=== PATIENT | female | born 1945 | race Caucasian/White ===

== ENCOUNTER 2017-02-02 05:44 | Day surgery (SDC) | payer MEDICARE, OTHER ==
--- NOTE | 2017-01-26 09:48 | RADIOLOGY REPORT (SQ) ---
EXAM DESCRIPTION: CHEST PA/LATERAL COMPLETED DATE/TIME: 01/26/2017 9:21 am REASON FOR STUDY: PRE OP COMPARISON: 10/14/2015, 09/13/2012, 03/17/2011 chest films EXAM PARAMETERS: NUMBER OF VIEWS: two views TECHNIQUE: Digital Frontal and Lateral radiographic views of the chest acquired. RADIATION DOSE: NA LIMITATIONS: none FINDINGS: LUNGS AND PLEURA: 2 cm nodule left upper lobe. Chest CT recommended for followup. No acute infiltrates. No significant pleural effusion. No pneumothorax. MEDIASTINUM AND HILAR STRUCTURES: No masses or contour abnormalities. HEART AND VASCULAR STRUCTURES: No cardiomegaly. Tortuous uncoiled thoracic aorta BONES: No acute findings. HARDWARE: None in the chest. OTHER: No other significant finding. IMPRESSION: 2 cm nodule left upper lobe. Chest CT recommended for followup. TECHNICAL DOCUMENTATION: JOB ID: [id number] [employer]- All Rights Reserved
[2017-01-26 10:00] LABS: ABSOLUTE BASOPHILS # (AUTO) 0.1 10^3/uL (0.0-0.2); ABSOLUTE EOSINOPHILS # (AUTO) 0.2 10^3/uL (0.0-0.6); ABSOLUTE LYMPHOCYTES (AUTO) 1.8 10^3/uL (0.5-4.7); ABSOLUTE MONOCYTES (AUTO) 0.6 10^3/uL (0.1-1.4); ABSOLUTE NEUT (AUTO) 5.6 10^3/uL (1.7-8.2); BASOPHILS % (AUTO) 1.2 % (0-2); EOSINOPHILS % (AUTO) 2.6 % (0-6); HEMATOCRIT 41.8 % (36.0-47.0); HEMOGLOBIN 14.4 g/dL (12.0-15.5); HGB HCT DIFFERENCE 1.4; LYMPHOCYTES % (AUTO) 21.8 % (13-45); MEAN CORPUSCULAR HEMOGLOBIN 28.8 pg (27.0-33.4); MEAN CORPUSCULAR HGB CONC 34.3 g/dL (32.0-36.0); MEAN CORPUSCULAR VOLUME 84 fl (80-97); MONOCYTES % (AUTO) 7.7 % (3-13); RED BLOOD COUNT 4.99 10^6/uL (3.72-5.28); RED CELL DISTRIBUTION WIDTH 14.4 % (11.5-14.0); SEGMENTED NEUTROPHILS % (AUTO) 66.7 % (42-78); WHITE BLOOD COUNT 8.5 10^3/uL (4.0-10.5)
[2017-01-26 10:03] LABS: APPEARANCE,URINE CLEAR; BILIRUBIN,URINE NEGATIVE (NEGATIVE); GLUCOSE, URINE NEGATIVE (NEGATIVE); KETONES,URINE NEGATIVE (NEGATIVE); LEUKOCYTE ESTERASE,URINE NEGATIVE (NEGATIVE); NITRITE,URINE NEGATIVE (NEGATIVE); PROTEIN,URINE NEGATIVE (NEGATIVE); UROBILINOGEN,URINE NEGATIVE mg/dL (<2.0)
[2017-01-26 10:27] LABS: ANION GAP 16 (5-19); BLOOD UREA NITROGEN 13 mg/dL (7-20); CALCIUM 10.1 mg/dL (8.4-10.2); CARBON DIOXIDE 31 mmol/L (22-30); CHLORIDE 94 mmol/L (98-107); CREATININE RESULT 0.74 mg/dL (0.52-1.25); GLUCOSE 116 mg/dL (75-110); POTASSIUM 3.6 mmol/L (3.6-5.0); SODIUM 140.6 mmol/L (137-145)
--- NOTE | 2017-01-26 21:03 | EKG REPORT ---
SEVERITY:- ABNORMAL ECG - SINUS RHYTHM INCOMPLETE RBBB AND LAFB CONSIDER ANTEROSEPTAL INFARCT : Confirmed by: Ana Dejesus MD 26-Jan-2017 21:02:42
[~2017-02-02 05:44] MED LIST: CEFAZOLIN 2 GM/D5W RTU 2 GM/50 ML RTUPB IV PRN; LACTATED RINGERS 1000 ML IV PRN
[2017-02-02] MEDS ORDERED: PROPOFOL INJ 200 MG/20 ML VIAL IV ONE (06:37)
[2017-02-02] MEDS ORDERED: FENTANYL CITRATE INJ/PF 100 MCG/2 ML AMPUL ONE (06:37)
[2017-02-02] MEDS ORDERED: MIDAZOLAM 2 MG/2 ML INJ ONE (06:37)
[2017-02-02] MEDS ORDERED: KETAMINE HCL INJ 500 MG/10 ML VIAL ONE (06:37)
[2017-02-02] MEDS ORDERED: LIDOCAINE 2% INJ-PF (20 MG/ML) 10 ML AMPUL ONE (06:37)
[2017-02-02] MEDS ORDERED: ACETAMINOPHEN 100 ML IV ONE (06:38)
[2017-02-02] MEDS ORDERED: BUPIVACAINE HCL 0.5 % INJ/PF 30 ML SDV ONE (06:45)
[2017-02-02] MEDS ORDERED: LIDOCAINE 1% INJ-PF (10 MG/ML) 30 ML SDV ONE (07:13)
[2017-02-02] MEDS ORDERED: MORPHINE SULFATE 10 MG/ML INJ IV PRN (07:41)
[2017-02-02] MEDS ORDERED: FENTANYL CITRATE INJ/PF 100 MCG/2 ML AMPUL IV PRN ×3 (07:41)
[2017-02-02] MEDS ORDERED: MEPERIDINE HCL/PF INJ 25 MG/1 ML DISP.SYRIN IV PRN (07:41)
[2017-02-02] MEDS ORDERED: ONDANSETRON HCL INJ/PF 4 MG/2 ML SDV IV PRN ×2 (07:41→08:16)
[2017-02-02] MEDS ORDERED: DIPHENHYDRAMINE HCL 50 MG/ML VIAL IV PRN (07:41)
[2017-02-02] MEDS ORDERED: OXYCODONE-ACETAMINOPHEN 5-325 MG TABLET PO PRN ×2 (07:41)
[2017-02-02] MEDS ORDERED: PROMETHAZINE HCL INJ 25 MG/1 ML VIAL IV PRN ×2 (07:41)
--- NOTE | 2017-02-02 07:49 | EKG REPORT ---
SEVERITY:- ABNORMAL ECG - SINUS RHYTHM INCOMPLETE RBBB AND LAFB CONSIDER ANTEROSEPTAL INFARCT : Confirmed by: Juan A Manzo MD 02-Feb-2017 07:48:52
[2017-02-02] MEDS ORDERED: HYDROCODONE/ACETAMINOPHEN 5-325 MG TABLET PO PRN (08:16)
--- NOTE | 2017-02-02 08:16 | Operative Report ---
Operative Report DATE OF SURGERY: 02/02/17 PREOPERATIVE DIAGNOSIS: Right Carpal Tunnel. Right Trigger Thumb POSTOPERATIVE DIAGNOSIS: Right Carpal Tunnel. Right Trigger Thumb OPERATION: Right Endoscopic Carpal Tunnel Release. Right Trigger Thumb Release SURGEON: MY BALLARD ANESTHESIA: LMAC COMPLICATIONS: None ESTIMATED BLOOD LOSS: Minimal PROCEDURE: Indication for above procedure: 72-year-old female with long-standing history of right carpal tunnel syndrome. Patient had neurodiagnostic testing confirming severe carpal tunnel syndrome. She subsequently also had concomitant trigger thumb. We discussed treatment options including operative versus nonoperative intervention. Given the severity of her carpal tunnel the joint decision was made to proceed with carpal tunnel release given the fact that is the ipsilateral side I would perform trigger thumb release. Risks and benefits were explained patient verbalized understanding consented for the procedure. Procedure In Detail: Patient was seen and evaluated in the preoperative holding area. The RIGHT upper extremity was initialized and marked. Patient received Ancef IV for bacterial prophylaxis. Patient was taken back to the operative room where transferred operative table. Patient was then placed under MAC anesthesia. Once adequately anesthetized, a nonsterile tourniquet was placed on the upper extremity. A surgical team debriefing was performed ensuring all instrumentation was available, the surgical procedure was discussed with possible concerns reviewed. Skin was prepped with alcohol a 50:50 10 mL mixture of 1% lidocaine and 0.5% Marcaine plain was injected locally and w/in carpal canal and along the A1 franny of the thumb. The upper extremity was prepped with chlorhexidine and alcohol and draped in a sterile fashion. A timeout was done identifying correct patient, procedure and extremity everyone in attendance agree with this and verbalized no concerns.The extremity was then exsanguinated the tourniquet was inflated to 250 mmHg. A transverse skin incision was made just proximal to the wrist flexion crease ulnar to the palmaris longus. Blunt dissection was performed down to the palmaris longus tendon which was retracted radially. Deep to the palmaris longus tendon was the volar carpal ligament this was incised identifying the median nerve deep. With the use of a [place] elevator any soft tissue/synovium was freed from the undersurface of the transverse carpal ligament. The hook of hamate was identified ulnarly. The ConMed cannulas were then introduced beginning with #1 progressing to a #3 gently dilating the carpal canal. I then introduced the scope within the cannula and identified transverse carpal ligament ensuring the median nerve was not visualized within the cannula. I triangulated distally with a 25-gauge needle identifying the distal aspect of the transverse carpal ligament, to ensure protection of the superficial palmar arch. The arthroscopic knife was used to incise the transverse carpal ligament under direct visualization with the arthroscopic camera. Any excess transverse fibers that remained after the first past were carefully released with a repeat pass. The median nerve was then directly visualized radially without disruption. Patient was noted to have significant hourglassing of the median nerve at the level of the transverse carpal ligament with significant hyperemia. Once this was completed I placed the #3 dilator and assured I got complete release of the transverse carpal ligament without residual compression. The median nerve was directly visualized and free of any overlying compression. I then turned my attention to release of the volar antebrachial fascia proximally. Once again a [place] was used to open the wound and I proceeded with cannula #1 to #3. The arthroscope was introduced into the cannula and under direct visualization the volar antebrachial fascia was released. Once this was complete I copiusly irrigated the wound with normal saline. The skin incision was closed with 4-0 Monocryl subcutaneous and a running subcuticular 4-0 Monocryl. This was reinforced with Dermabond and Steri -Strips. Transverse skin incision was made centered over the A1 franny of the thumb. The radial and ulnar neurovascular bundles were identified and retracted from the wound. Of note patient had significant pacinian corpuscles of the radial nerve at the level of the A1 franny. The A1 franny was identified and incised. The A1 franny was released to the level of the oblique franny but not through the oblique franny. The palmar aponeurotic franny was released proximal to the A1 franny. The tendon was retracted from the wound there is no residual catching or locking appreciated. The wound was then copiously irrigated with normal saline. Skin was closed with interrupted 4-0 nylon suture. Wound was dressed with Xeroform and a soft dressing. Sponge counts, instrument counts, needle counts counts were correct. Patient was then awoken from anesthesia. Transferred from the operating room table to the operating room stretcher. There was no intraoperative complications patient tolerated procedure well stable to PACU. Postoperative plan: Patient will follow-up as scheduled for wound check. They will call with any questions or concerns.
[2017-02-02 10:13] VITALS: BP 120/60
== END 2017-02-02 10:18 | disposition home or self-care (01) ==
LOC: OROUT 05:44
PROVIDERS: ATTEND Orthopaedic Surgery
PROC: 01N54ZZ Release Median Nerve, Percutaneous Endoscopic Approach (ICD-10-PCS; 2017-02-02)
PROC: 0LN70ZZ Release Right Hand Tendon, Open Approach (ICD-10-PCS; principal; 2017-02-02 07:30)
DX: G56.01 Carpal tunnel syndrome, right upper limb (principal); M65.311 Trigger thumb, right thumb; I10 Essential (primary) hypertension; J45.909 Unspecified asthma, uncomplicated; M19.90 Unspecified osteoarthritis, unspecified site; E89.0 Postprocedural hypothyroidism; Z96.653 Presence of artificial knee joint, bilateral; Z88.8 Allergy status to other drugs, medicaments and biological substances; Z88.1 Allergy status to other antibiotic agents; Z79.51 Long term (current) use of inhaled steroids; Z79.899 Other long term (current) drug therapy; Z85.42 Personal history of malignant neoplasm of other parts of uterus
CPT/HCPCS: 93005 ×2; 36415 ×2; 84132; 85025; 80048; 81001; 71020; 93010 ×2; 26055; 29848; J2250; J3010; J3490 ×3; J2704; J0690; J0131; 1810

== ENCOUNTER → 2017-02-12 | Outpatient (CLI) | payer MEDICARE, OTHER ==
--- NOTE | 2017-02-12 16:02 | RADIOLOGY REPORT (SQ) ---
EXAM DESCRIPTION: CT CHEST WITHOUT COMPLETED DATE/TIME: 02/12/2017 3:31 pm REASON FOR STUDY: SOLITARY PULMONARY NODULE R91.1 SOLITARY PULMONARY NODULE COMPARISON: None. TECHNIQUE: CT scan performed of the chest without intravenous contrast. Images reviewed with lung, soft tissue and bone windows. Reconstructed coronal and sagittal MPR images reviewed. All images st ored on PACS. All CT scanners at this facility use dose modulation, iterative reconstruction, and/or weight based d osing when appropriate to reduce radiation dose to as low as reasonably achievable (ALARA). [facility]: Dose Right [facility]: CareDose [facility]: Dose Right [facility]: Teradose 4D [facility]: Smart SmartGrains RADIATION DOSE: CT Rad equipment meets quality standard of care and radiation dose reduction techniq ues were employed. CTDIvol: 19.3 mGy. DLP: 703 mGy-cm. mGy. LIMITATIONS: No technical limitations. FINDINGS: LUNGS AND PLEURA: 1.7 cm solitary solid nodule left upper lobe. 3 mm ground-glass nodule left apex image 20. No effusions. HILAR AND MEDIASTINAL STRUCTURES: No identified masses or abnormal nodes. No obvious aneurysm. HEART AND VASCULAR STRUCTURES: No aneurysm. No pericardial effusion. UPPER ABDOMEN: No significant findings. Limited exam. THYROID AND OTHER SOFT TISSUES: No masses. No adenopathy. BONES: No significant finding. HARDWARE: None in the chest. OTHER: No other significant findings. IMPRESSION: Solitary solid nodule left upper lobe. Much smaller ground-glass nodule left upper lobe . Consider PET-CT. TECHNICAL DOCUMENTATION: JOB ID: [id number] Quality ID # [id number]: Final reports with documentation of one or more dose reduction techniques (e.g., Au tomated exposure control, adjustment of the mA and/or kV according to patient size, use of iterative reconstruction technique) 2010 [email or web address]- All Rights Reserved
== END ==
LOC: RAD 15:12
PROVIDERS: ATTEND Family Medicine
DX: R91.1 Solitary pulmonary nodule (principal)
CPT/HCPCS: 71250

== ENCOUNTER → 2017-05-31 | Outpatient (CLI) | payer MEDICARE, OTHER ==
--- NOTE | 2017-05-31 14:22 | RADIOLOGY REPORT (SQ) ---
EXAM DESCRIPTION: CHEST PA/LAT COMPLETED DATE/TIME: 05/31/2017 2:02 pm REASON FOR STUDY: PULMONARY NODULE (R91.1) COMPARISON: 10/14/2015 EXAM PARAMETERS: NUMBER OF VIEWS: two views TECHNIQUE: Digital Frontal and Lateral radiographic views of the chest acquired. RADIATION DOSE: NA LIMITATIONS: none FINDINGS: LUNGS AND PLEURA: Left upper lobe nodule measures about 2 cm, previously about 1.5 cm. No new nodules. MEDIASTINUM AND HILAR STRUCTURES: No masses. HEART AND VASCULAR STRUCTURES: Stable heart size. BONES: No acute findings. HARDWARE: None in the chest. OTHER: No other significant finding. IMPRESSION: Slight increase in size of left upper lobe nodule. TECHNICAL DOCUMENTATION: JOB ID: [id number] [employer]- All Rights Reserved Reading location - IP/workstation name: [email or web address]
== END ==
LOC: RAD 13:20
PROVIDERS: ATTEND Family Medicine
DX: R91.1 Solitary pulmonary nodule (principal)
CPT/HCPCS: 71046

== ENCOUNTER 2017-06-15 08:15 | Day surgery (SDC) | payer MEDICARE, OTHER ==
--- NOTE | 2017-06-08 10:40 | EKG REPORT ---
SEVERITY:- ABNORMAL ECG - SINUS RHYTHM INCOMPLETE RBBB AND LAFB PROBABLE LVH WITH SECONDARY REPOL ABNRM : Confirmed by: Kavon Chaudhry 08-Jun-2017 10:39:01
[2017-06-08 10:56] LABS: ABSOLUTE BASOPHILS # (AUTO) 0.1 10^3/uL (0.0-0.2); ABSOLUTE EOSINOPHILS # (AUTO) 0.2 10^3/uL (0.0-0.6); ABSOLUTE LYMPHOCYTES (AUTO) 1.7 10^3/uL (0.5-4.7); ABSOLUTE MONOCYTES (AUTO) 0.7 10^3/uL (0.1-1.4); ABSOLUTE NEUT (AUTO) 5.4 10^3/uL (1.7-8.2); BASOPHILS % (AUTO) 1.3 % (0-2); EOSINOPHILS % (AUTO) 2.2 % (0-6); HEMATOCRIT 43.9 % (36.0-47.0); HEMOGLOBIN 14.9 g/dL (12.0-15.5); LYMPHOCYTES % (AUTO) 21.5 % (13-45); MEAN CORPUSCULAR HEMOGLOBIN 28.8 pg (27.0-33.4); MEAN CORPUSCULAR HGB CONC 33.9 g/dL (32.0-36.0); MEAN CORPUSCULAR VOLUME 85 fl (80-97); MONOCYTES % (AUTO) 8.5 % (3-13); PLATELET COUNT 325 10^3/uL (150-450); RED BLOOD COUNT 5.17 10^6/uL (3.72-5.28); RED CELL DISTRIBUTION WIDTH 13.7 % (11.5-14.0); SEGMENTED NEUTROPHILS % (AUTO) 66.5 % (42-78); TOTAL CELLS COUNTED % (AUTO) 100 %; WHITE BLOOD COUNT 8.1 10^3/uL (4.0-10.5)
[2017-06-08 11:01] LABS: APPEARANCE,URINE CLEAR; BILIRUBIN,URINE NEGATIVE (NEGATIVE); COLOR,URINE YELLOW; GLUCOSE, URINE NEGATIVE (NEGATIVE); KETONES,URINE NEGATIVE (NEGATIVE); LEUKOCYTE ESTERASE,URINE NEGATIVE (NEGATIVE); NITRITE,URINE NEGATIVE (NEGATIVE); PROTEIN,URINE NEGATIVE (NEGATIVE); UROBILINOGEN,URINE NEGATIVE mg/dL (<2.0)
[2017-06-08 11:35] LABS: ANION GAP 12 (5-19); BLOOD UREA NITROGEN 15 mg/dL (7-20); CARBON DIOXIDE 33 mmol/L (22-30); CHLORIDE 95 mmol/L (98-107); GLUCOSE 140 mg/dL (75-110); POTASSIUM 3.2 mmol/L (3.6-5.0); SODIUM 139.5 mmol/L (137-145)
--- NOTE | 2017-06-08 13:17 | RADIOLOGY REPORT (SQ) ---
EXAM DESCRIPTION: CHEST PA/LATERAL COMPLETED DATE/TIME: 06/08/2017 10:34 am REASON FOR STUDY: PRE OP COMPARISON: 05/31/2017 EXAM PARAMETERS: NUMBER OF VIEWS: two views TECHNIQUE: Digital Frontal and Lateral radiographic views of the chest acquired. RADIATION DOSE: NA LIMITATIONS: none FINDINGS: LUNGS AND PLEURA: Left upper lobe pulmonary nodule. No infiltrate or effusion. Mild insurance analyst shamika interstitial changes. MEDIASTINUM AND HILAR STRUCTURES: No masses or contour abnormalities. HEART AND VASCULAR STRUCTURES: Heart normal size. No evidence for failure. BONES: No acute findings. HARDWARE: None in the chest. OTHER: No other significant finding. IMPRESSION: Chronic lung changes. Left upper lobe pulmonary nodule. TECHNICAL DOCUMENTATION: JOB ID: [id number] [employer]- All Rights Reserved Reading location - IP/workstation name: [email or web address]
[~2017-06-15 08:15] MED LIST changes: -CEFAZOLIN 2 GM/D5W RTU 2 GM/50 ML RTUPB IV PRN; +CEFAZOLIN SODIUM 2 GM in NORMAL SALINE 100 ML IV PRN; +LIDOCAINE 0.5% INJ-PF (5 MG/ML) 50 ML SDV SUBCUT PRN
[2017-06-15] MEDS ORDERED: FENTANYL CITRATE INJ/PF 100 MCG/2 ML AMPUL ONE (09:48)
[2017-06-15] MEDS ORDERED: MIDAZOLAM 2 MG/2 ML INJ ONE (09:48)
[2017-06-15] MEDS ORDERED: ONDANSETRON HCL INJ/PF 4 MG/2 ML SDV ONE (09:48)
[2017-06-15] MEDS ORDERED: PROPOFOL INJ 200 MG/20 ML VIAL IV ONE (09:48)
[2017-06-15] MEDS ORDERED: BUPIVACAINE HCL 0.5 % INJ/PF 30 ML SDV ONE (09:49)
[2017-06-15] MEDS ORDERED: LIDOCAINE 1% INJ-PF (10 MG/ML) 30 ML SDV ONE (09:49)
[2017-06-15] MEDS ORDERED: FENTANYL CITRATE INJ/PF 100 MCG/2 ML AMPUL IV PRN ×3 (10:14)
[2017-06-15] MEDS ORDERED: DIPHENHYDRAMINE HCL 50 MG/ML VIAL IV PRN (10:14)
[2017-06-15] MEDS ORDERED: MEPERIDINE HCL/PF INJ 25 MG/1 ML DISP.SYRIN IV PRN (10:14)
--- NOTE | 2017-06-15 11:00 | Operative Report ---
Operative Report DATE OF SURGERY: 06/15/17 PREOPERATIVE DIAGNOSIS: #1 Carpal Tunl. left wrist. #2 mass left wrist POSTOPERATIVE DIAGNOSIS: Same OPERATION: #1 Left Open Carpal Tunl. release. #2 Flexor tenosynovectomy left carpal tunnel. #4 excision ganglion left wrist. #3 excision lipoma left wrist SURGEON: MY BALLARD 1ST SCIENTIFIC GLASS BLOWER: WILBUR GOVEA ANESTHESIA: GA TISSUE REMOVED OR ALTERED: Mass left wrist. Ganglion left wrist COMPLICATIONS: None ESTIMATED BLOOD LOSS: Minimal PROCEDURE: Indication for above procedure: Pleasant 72-year-old female who presents my office with numbness and tingling in her left wrist. Neurodiagnostic testing was done confirming carpal tunnel. Patient also had concomitant mass along her left wrist. At that point we discussed treatment options including operative versus nonoperative intervention. Patient failed conservative measures thus decision was made to proceed with operative treatment. Procedure In Detail: Procedure In Detail: Patient was seen and evaluated in the preoperative holding area. The upper extremity was initialized and marked. Patient received 2g of Ancef IV for bacterial prophylaxis. Patient was taken back to the operative room where transferred to the operative table and placed under general anesthesia. Once they were adequately anesthetized a nonsterile tourniquet was placed on the upper extremity. A surgical team debriefing was performed ensuring all instrumentation was available, the surgical procedure was discussed with possible concerns reviewed. The upper extremity was prepped with chlorhexidine and alcohol and draped in a sterile fashion. A timeout was done identifying correct patient, procedure and extremity everyone in attendance agree with this and verbalized no concerns. The extremity was exsanguinated the tourniquet was inflated to 250 mmHg. A transverse skin incision was made just proximal to the wrist flexion crease ulnar to the palmaris longus. Blunt dissection was performed down to the palmaris longus tendon which was retracted radially. Deep to the palmaris longus tendon was the volar carpal ligament this was incised identifying the median nerve deep. With the use of a [place] elevator any soft tissue/synovium was freed from the undersurface of the transverse carpal ligament. The hook of hamate was identified ulnarly. The ConMed cannulas were then introduced beginning with #1 progressing to a #3 gently dilating the carpal canal. I then introduced the scope within the cannula and identified transverse carpal ligament ensuring the median nerve was not visualized within the cannula. There was evidence of significant tenosynovium with anomalous muscle at the transverse incision site. Muscle was likely consistent with palmaris profundus and was debulked. Given the anomalous muscle I proceeded to open carpal tunnel release. Longitudinal skin incision was made along the radial border of the ring finger from Hollis's cardinal line to just distal to the wrist flexion crease. The palmar fascia was incised. The transverse carpal labrum was then identified and released proximally to distally at the adipose protecting the superficial palmar arch. I then completed release of the volar antebrachial fascia. There was evidence of tenosynovium and thus a flexor tenosynovectomy was performed to further decompress the carpal canal. The wound was irrigated with saline. Any peripheral veins were coagulated bipolar cautery skin incision was closed with horizontal mattress 3-0 nylon. Longitudinal skin incision was made along the superficial mass on the dorsal ulnar border of the wrist. Blunt dissection was performed branches of the dorsal sensory ulnar branch was protected. The mass was then isolated and consistent with a ganglion cyst from the tendon sheath and thus excised and sent to pathology. Ganglion was 1.5 cm x 1 cm in size. The adjacent mass just proximal was also identified in the lipoma 5 mm x 5 mm was removed and sent to pathology. The wound was then copiously irrigated with normal saline. Skin was closed with horizontal mattress 4-0 nylon. 20 cc of 0.5% Marcaine with epinephrine was injected for postoperative pain control. Wound was dressed with a soft dressing, 4 x 4's and a De bandage was placed loosely. Sponge counts, instrument counts and needle counts were correct. The was no intraoperative complications patient tolerated the procedure well and was stable to PACU. Postoperative plan: Patient will follow-up in the office in 2 weeks for recheck. Will discuss pathology results.
[2017-06-15] MEDS ORDERED: MORPHINE SULFATE 10 MG/ML INJ IV PRN (11:01)
[2017-06-15] MEDS ORDERED: RINGERS SOLUTION,LACTATED 1,000 ML IV PRN (11:01)
[2017-06-15] MEDS ORDERED: ONDANSETRON HCL INJ/PF 4 MG/2 ML SDV IV PRN (11:01)
[2017-06-15] MEDS ORDERED: OXYCODONE-ACETAMINOPHEN 5-325 MG TABLET PO PRN (11:01)
--- NOTE | 2017-06-15 11:01 | Discharge Summary ---
Discharge Summary (SDC) - Discharge Final Diagnosis: Left carpal tunnel syndrome and left dorsal ganglion cyst and soft tissue mass Date of Surgery: 06/15/17 Discharge Date: 06/15/17 Condition: Good Treatment or Instructions: Schedule Follow Up w/ Dr. Tomer Flood @ [facility] for Surgery to be seen in 10-14 days or as scheduled [place]: [place]: [place]: May remove dressing on postop day #3, keep incision covered and dry. Ice and elevate May begin finger range of motion attempting to make full fist. Stool softener of choice when on pain medication. Prescriptions: Hydrocodone/Acetaminophen [Hydrocodon-Acetaminophen 5-325] 1 each PO Q6 #20 tablet Referrals: ARMEN DOWNEY MD [Primary Care Provider] - Respiratory Treatments at Home: Deep Breathing/Coughing Discharge Activity: No Lifting Over 10 Pounds, No Lifting/Push/Pulling Home Care Assistance: None Needed Report the Following to Your Physician Immediately: Shortness of Breath, Fever over 101 Degrees, Unusual Bleeding, Redness, Drainage-Green, Drainage-Foul Smelling
[2017-06-15] MEDS ORDERED: IPRATROPIUM/ALBUTEROL 0.5-2.5 MG/3 ML AMPUL NEB ONE (11:12)
[2017-06-15] MEDS: FENTANYL CITRATE INJ/PF 100 MCG/2 ML AMPUL ONE ×2 (11:27→11:33)
[2017-06-15 13:38] VITALS: BP 116/53
== END 2017-06-15 13:35 | disposition home or self-care (01) ==
LOC: OROUT 08:15
PROVIDERS: ATTEND Orthopaedic Surgery
PROC: 0LB60ZZ Excision of Left Lower Arm and Wrist Tendon, Open Approach (ICD-10-PCS; 2017-06-15)
PROC: 0HBEXZZ Excision of Left Lower Arm Skin, External Approach (ICD-10-PCS; 2017-06-15)
PROC: 01N50ZZ Release Median Nerve, Open Approach (ICD-10-PCS; principal; 2017-06-15 10:15)
DX: G56.02 Carpal tunnel syndrome, left upper limb (principal); D17.22 Benign lipomatous neoplasm of skin and subcutaneous tissue of left arm; M67.432 Ganglion, left wrist; E08.9 Diabetes mellitus due to underlying condition without complications; M19.90 Unspecified osteoarthritis, unspecified site; I10 Essential (primary) hypertension; Z96.653 Presence of artificial knee joint, bilateral; J45.909 Unspecified asthma, uncomplicated; Z79.51 Long term (current) use of inhaled steroids; Z88.1 Allergy status to other antibiotic agents; Z85.42 Personal history of malignant neoplasm of other parts of uterus
CPT/HCPCS: 64721; 25111; 93005; 36415 ×2; 84132; 85025; 80048; 81001; 88304 ×2; 71046; 93010; J2250; J3490; J0690; J3010; A9270 ×2; J2405; J2704; 1810; J7620

== ENCOUNTER 2019-08-09 13:45 | Emergency (ER) | payer MEDICARE, OTHER ==
[2019-08-09] MEDS ORDERED: MORPHINE SULFATE 10 MG/ML INJ IV ONE (14:07)
[2019-08-09] MEDS ORDERED: DIPH/PERTUSS(ACELL)/TETANUS VAC/PF 0.5 ML SYR (>=10YO) IM ONE (14:07)
--- NOTE | 2019-08-09 14:38 | RADIOLOGY REPORT (SQ) ---
EXAM DESCRIPTION: HAND LEFT 3 VIEWS IMAGES COMPLETED DATE/TIME: 08/09/2019 2:24 pm REASON FOR STUDY: fall/pain COMPARISON: None. EXAM PARAMETERS: NUMBER OF VIEWS: Three views. TECHNIQUE: AP, lateral and oblique radiographic images acquired of the left hand. LIMITATIONS: None. FINDINGS: MINERALIZATION: Decreased. BONES: Transversely oriented displaced impacted fracture of the distal radius. Likely intra-articula r extension to the radiocarpal and distal radioulnar joints. No significant angulation. Ulnar posit tico variance. Possible ulnar styloid fracture versus degenerative change. JOINTS: Degenerative changes with osteophytosis, subchondral sclerosis and joint space loss at the 1s t and 2nd carpometacarpal joints. SOFT TISSUES: Soft tissue swelling about the wrist. OTHER: No other significant finding. IMPRESSION: Transverse impacted fracture of the distal radius with likely intra-articular extension into the radiocarpal and distal radioulnar joints. TECHNICAL DOCUMENTATION: JOB ID: [id number] 2010 [employer]- All Rights Reserved Reading location - IP/workstation name: [email or web address]
--- NOTE | 2019-08-09 14:40 | RADIOLOGY REPORT (SQ) ---
EXAM DESCRIPTION: WRIST LEFT 3 VIEWS IMAGES COMPLETED DATE/TIME: 08/09/2019 2:24 pm REASON FOR STUDY: fall/pain COMPARISON: None. NUMBER OF VIEWS: Three views. TECHNIQUE: AP, lateral, and oblique radiographic images acquired of the left wrist. LIMITATIONS: None. FINDINGS: MINERALIZATION: Decreased. BONES: Displaced impacted fracture of the distal radius with likely extension into the radiocarpal an d distal radioulnar joints. No significant angulation. No additional definitive fractures identifie d. Degenerative changes about the 1st and 2nd carpometacarpal joints SOFT TISSUES: Soft tissue swelling about the wrist. OTHER: No other significant finding. IMPRESSION: Transverse impacted fracture at the distal radius with likely extension into the distal radioulnar and radiocarpal joints. TECHNICAL DOCUMENTATION: JOB ID: [id number] 2010 [employer]- All Rights Reserved Reading location - IP/workstation name: [email or web address]
--- NOTE | 2019-08-09 15:02 | ER Document Report ---
ED General - General Chief Complaint: Wrist Injury Stated Complaint: LEFT HAND PAIN Time Seen by Provider: 08/09/19 14:04 Primary Care Provider: ARMEN DOWNEY MD [Primary Care Provider] - Follow up as needed Mode of Arrival: Wheelchair Information source: Patient TRAVEL OUTSIDE OF THE [place] IN LAST 30 DAYS: No - HPI Notes: Patient complains of left wrist pain. Patient states that she fell over a rug this morning and landed on her left wrist. Since that time she has had constant severe left wrist pain. Worse with movement is better with rest. It does radiate up the left arm. She denies any other injuries in the fall. It has been an aching sensation. - Related Data Allergies/Adverse Reactions: azithromycin [From Zithromax Z-Gordon] Allergy (Severe, Verified 08/09/19 14:21) rash,GI upset clarithromycin [From Biaxin] Allergy (Severe, Verified 08/09/19 14:21) rash,GI upset erythromycin base [Erythromycin Base] Allergy (Severe, Verified 08/09/19 14:21) rash,GI upset ciprofloxacin [From Cipro] Adverse Reaction (Verified 08/09/19 14:21) n/v/d clindamycin Adverse Reaction (Verified 08/09/19 14:21) rash, GI upset turkey Adverse Reaction (Severe, Uncoded 08/09/19 14:21) GI upset Past Medical History - General Information source: Patient - Social History Smoking Status: Never Smoker Frequency of alcohol use: None Drug Abuse: None Family History: Reviewed & Not Pertinent Patient has homicidal ideation: No - Past Medical History Cardiac Medical History: Reports: Hx Hypercholesterolemia, Hx Hypertension - 8 yrs- takes meds Denies: Hx Atrial Fibrillation, Hx Congestive Heart Failure, Hx Coronary Artery Disease, Hx Heart Attack, Hx Peripheral Vascular Disease, Hx Pulmonary Embolism, Hx Heart Murmur Pulmonary Medical History: Reports: Hx Asthma - daily meds, no hospitalizations, Hx Bronchitis - x 1 episode/year, Hx Pneumonia - no hospitalization Denies: Hx COPD, Hx Respiratory Failure, Hx Sleep Apnea, Hx Tuberculosis Neurological Medical History: Denies: Hx Cerebrovascular Accident, Hx Seizures Endocrine Medical History: Reports: Hx Hypothyroidism - parathyroid/thyroid surgery 2010. Denies: Hx Graves' Disease, Hx Hyperthyroidism Renal/ Medical History: Denies: Hx End Stage Renal Disease, Hx Kidney Stones, Hx Ovarian Cysts, Hx Peritoneal Dialysis, Hx Pelvic Inflammatory Disease Malignancy Medical History: Denies: Hx Breast Cancer, Hx Cervical Cancer, Hx Lung Cancer, Hx Ovarian Cancer - Endometrial Cancer-hysterectomy 2013 GI Medical History: Denies: Hx Crohn's Disease, Hx Gastroesophageal Reflux Disease, Hx Hepatitis, Hx Hiatal Hernia, Hx Irritable Bowel, Hx Liver Failure, Hx Pancreatitis, Hx Ulcer Musculoskeletal Medical History: Reports Hx Arthritis - Hands , Denies Hx Fibromyalgia, Denies Hx Muscular Dystrophy, Denies Hx Systemic Lupus Erythematosus Psychiatric Medical History: Reports: Hx Depression Denies: Hx Bipolar Disorder, Hx Post Traumatic Stress Disorder, Hx Schizophrenia Traumatic Medical History: Reports: Hx Fractures - RUE wth dislocation of shoulder 2006,immobilized with sling, denies surgery Infectious Medical History: Denies: Hx Hepatitis Past Surgical History: Reports: Hx Hysterectomy. Denies: Hx Appendectomy, Hx Bowel Surgery, Hx Section, Hx Cholecystectomy, Hx Colostomy, Hx Coronary Artery Bypass Graft, Hx Gastric Bypass Surgery, Hx Herniorrhaphy, Hx Mastectomy, Hx Open Heart Surgery, Hx Pacemaker, Hx Tonsillectomy, Hx Tubal Ligation - Immunizations Hx Diphtheria, Pertussis, Tetanus Vaccination: Yes - "A long time ago" Hx Pneumococcal Vaccination: 12/07/11 Review of Systems - Review of Systems Constitutional: denies: Chills, Fever Cardiovascular: denies: Chest pain, Palpitations Respiratory: denies: Cough, Short of breath -: Yes All other systems reviewed and negative Physical Exam - Vital signs Vitals: Temp Pulse Resp BP Pulse Ox 99.4 F 96 18 134/62 H 94 08/09/19 13:52 08/09/19 13:52 08/09/19 13:52 08/09/19 13:52 08/09/19 13:52 Interpretation: Normal - General General appearance: Appears well, Alert - HEENT Head: Normocephalic, Atraumatic Eyes: Normal Pupils: PERRL - Respiratory Respiratory status: No respiratory distress Chest status: Nontender Breath sounds: Normal Chest palpation: Normal - Cardiovascular Rhythm: Regular Heart sounds: Normal auscultation Murmur: No - Abdominal Inspection: Normal Distension: No distension Bowel sounds: Normal Tenderness: Nontender Organomegaly: No organomegaly - Back Back: Normal, Nontender - Extremities General upper extremity: Tender - Left wrist is tender and swollen. There is no sign of compartment syndrome at this point. She can wiggle all fingers on the left hand. She has normal capillary refill in all fingers. She has a 2+ radial pulse on the left., Normal temperature General lower extremity: Normal inspection, Nontender, Normal color, Normal ROM, Normal temperature, Normal weight bearing. No: Freya's sign - Neurological Neuro grossly intact: Yes Cognition: Normal Orientation: AAOx4 Donny Coma Scale Eye Opening: Spontaneous Donny Coma Scale Verbal: Oriented [place] Coma Scale Motor: Obeys Commands Donny Coma Scale Total: 15 Speech: Normal Motor strength normal: LUE, RUE, LLE, RLE Sensory: Normal - Psychological Associated symptoms: Normal affect, Normal mood - Skin Skin Temperature: Warm Skin Moisture: Dry Skin Color: Normal Course - Re-evaluation Re-evalutation: 08/09/19 14:59 Patient has a overriding impacted distal radius fracture. I discussed the case with Dr. San who feels that reduction would not be constructive. He asked the patient be placed in a volar splint and referred to his office. - Vital Signs Vital signs: Temp Pulse Resp BP Pulse Ox 99.0 F 89 20 135/63 H 96 08/09/19 14:10 08/09/19 14:10 08/09/19 14:10 08/09/19 14:10 08/09/19 14:10 - Diagnostic Test Radiology reviewed: Image reviewed, Reports reviewed Procedures - Immobilization Left Wrist Time completed: 14:59 Pre-Proc Neuro Vasc Exam: Normal Immobilizer type: Volar splint Performed by: RN Post-Proc Neuro Vasc Exam: Normal Alignment checked and good: No - still overriding Discharge - Discharge Clinical Impression: Distal radius fracture, left Qualifiers: Encounter type: initial encounter Fracture type: closed Fracture morphology: other intra-articular Qualified Code(s): S52.572A - Other intraarticular fracture of lower end of left radius, initial encounter for closed fracture Condition: Stable Disposition: HOME, SELF-CARE Instructions: Fractured Radius (H) Additional Instructions: Please call Dr. San's office today and he will try to see you before the end of the week. Prescriptions: Hydrocodone/Acetaminophen [[place] 5-325 mg Tablet] 1 tab PO Q6 PRN 3 Days #12 tablet PRN Reason: Referrals: MIKO SAN MD [ACTIVE PROVISIONAL STAFF] - Follow up tomorrow
[2019-08-09 16:07] VITALS: BP 135/78
== END 2019-08-09 16:20 | disposition home or self-care (01) ==
LOC: ER 13:45
DX: S52.572A Other intraarticular fracture of lower end of left radius, initial encounter for closed fracture (principal); W01.0XXA Fall on same level from slipping, tripping and stumbling without subsequent striking against object, initial encounter; Y93.89 Activity, other specified; Z23 Encounter for immunization; Z88.1 Allergy status to other antibiotic agents; I10 Essential (primary) hypertension; J45.909 Unspecified asthma, uncomplicated
CPT/HCPCS: 73130; 99283; 90471; 96374; 73110; 90715; 29125; J2270

== ENCOUNTER 2019-08-15 11:21 | Day surgery (SDC) | payer MEDICARE, OTHER ==
[~2019-08-15 11:21] MED LIST changes: +CEFAZOLIN 2 GM/D5W RTU 2 GM/50 ML RTUPB IV ONE; +CEFAZOLIN 2 GM/D5W RTU 2 GM/50 ML RTUPB IV PRN; -CEFAZOLIN SODIUM 2 GM in NORMAL SALINE 100 ML IV PRN; -LACTATED RINGERS 1000 ML IV PRN; -LIDOCAINE 0.5% INJ-PF (5 MG/ML) 50 ML SDV SUBCUT PRN
[2019-08-15] MEDS ORDERED: BUPIVACAINE HCL 0.25 % INJ/PF (2.5 MG/1 ML) 30 ML VIAL ONE (12:43)
[2019-08-15] MEDS ORDERED: SCOPOLAMINE HYDROBROMIDE 1.5 MG PATCH.TD72 ONE (12:52)
[2019-08-15] MEDS ORDERED: MIDAZOLAM 2 MG/2 ML INJ ONE (14:18)
[2019-08-15] MEDS ORDERED: FENTANYL CITRATE INJ/PF 250 MCG/5 ML AMPULE ONE (14:18)
[2019-08-15] MEDS ORDERED: PROPOFOL INJ 200 MG/20 ML VIAL IV ONE ×2 (14:19→14:44)
[2019-08-15] MEDS ORDERED: EPHEDRINE SULFATE INJ 50 MG/1 ML AMPULE ONE (14:20)
[2019-08-15] MEDS ORDERED: SCOPOLAMINE HYDROBROMIDE 1.5 MG PATCH.TD72 TD ONE (14:30)
[2019-08-15] MEDS ORDERED: FENTANYL CITRATE INJ/PF 100 MCG/2 ML AMPUL IV PRN ×3 (14:48)
[2019-08-15] MEDS ORDERED: DIPHENHYDRAMINE HCL 50 MG/ML VIAL IV PRN (14:48)
[2019-08-15] MEDS ORDERED: MEPERIDINE HCL/PF INJ 25 MG/1 ML DISP.SYRIN IV PRN (14:48)
[2019-08-15] MEDS ORDERED: OXYCODONE-ACETAMINOPHEN 5-325 MG TABLET PO PRN ×3 (14:48→16:15)
[2019-08-15] MEDS ORDERED: PROMETHAZINE HCL INJ 25 MG/1 ML VIAL IV PRN ×2 (14:48)
--- NOTE | 2019-08-15 16:06 | RADIOLOGY REPORT (SQ) ---
EXAM DESCRIPTION: NO CHG FLUORO; WRIST LEFT 3 VIEWS IMAGES COMPLETED DATE/TIME: 08/15/2019 3:52 pm REASON FOR STUDY: ORIF LT WRIST COMPARISON: None. FLUOROSCOPY TIME: 44 seconds 4 images saved to PACS. TECHNIQUE: Intra-operative images acquired during surgical procedure to evaluate progress. NUMBER OF IMAGES: 4 LIMITATIONS: None. FINDINGS: Plate and screw fixation previously described distal radial fracture. Alignment is near a natomic. IMPRESSION: IMAGE(S) OBTAINED DURING PROCEDURE. COMMENT: Quality ID 145: Final reports for procedures using fluoroscopy that document radiation exp osure indices, or exposure time and number of fluorographic images (if radiation exposure indices are not available) Please consult full operative report of the attending physician for description of the procedure. TECHNICAL DOCUMENTATION: JOB ID: [id number] 2010 [employer]- All Rights Reserved Reading location - IP/workstation name: [email or web address]
--- NOTE | 2019-08-15 16:06 | RADIOLOGY REPORT (SQ) ---
EXAM DESCRIPTION: NO CHG FLUORO; WRIST LEFT 3 VIEWS IMAGES COMPLETED DATE/TIME: 08/15/2019 3:52 pm REASON FOR STUDY: ORIF LT WRIST COMPARISON: None. FLUOROSCOPY TIME: 44 seconds 4 images saved to PACS. TECHNIQUE: Intra-operative images acquired during surgical procedure to evaluate progress. NUMBER OF IMAGES: 4 LIMITATIONS: None. FINDINGS: Plate and screw fixation previously described distal radial fracture. Alignment is near a natomic. IMPRESSION: IMAGE(S) OBTAINED DURING PROCEDURE. COMMENT: Quality ID 145: Final reports for procedures using fluoroscopy that document radiation exp osure indices, or exposure time and number of fluorographic images (if radiation exposure indices are not available) Please consult full operative report of the attending physician for description of the procedure. TECHNICAL DOCUMENTATION: JOB ID: [id number] 2010 [employer]- All Rights Reserved Reading location - IP/workstation name: [email or web address]
--- NOTE | 2019-08-15 16:07 | Discharge Summary ---
Discharge Summary (SDC) - Discharge Final Diagnosis: Right distal radius fracture Date of Surgery: 08/15/19 Discharge Date: 08/15/19 Condition: Good Treatment or Instructions: Schedule Follow Up w/ Dr. Tomer Flood @ [facility] to be seen in 10-14 days or as scheduled [place]: [place]: [place]: Ice and elevate Keep splint clean/dry/intact, do not remove. If your fingers become numb please unwrap the De wrap but leave the splint in place, if the sensation does not return within 30 minutes please return to the emergency department. May begin finger range of motion attempting to make full fist. Please use ibuprofen (Motrin or Advil) 600-800 mg every 8 hours as needed for pain or fever DO NOT TAKE w/ TORADOL may use once TORADOL complete. You may also use acetaminophen (Tylenol) 1000 mg every 4-6 hours as needed for pain or fever. Please be aware that many medications contain acetaminophen, do not exceed a total of 1000 mg of acetaminophen every 6 hours. If ibuprofen and acetaminophen are not sufficient for your pain you may take the Percocet/Menlo. Please be aware that the Percocet/Menlo does contain Tylenol. Stool softener of choice when on pain medication. USE OF [id number]-ZEV-XIUYUSP IBUPROFEN: Ibuprofen (Advil, Nuprin, Medipren, Motrin IB) is a medication for fever and pain control. In addition, it has anti- inflammatory effects which may be beneficial, especially in the treatment of injuries. It's best to take ibuprofen with food. Persons with ulcer disease or allergy to aspirin should notify their physician of this before taking ibuprofen. Ibuprofen can be given every four to six hours, for a total of four doses daily. Age Pain or fever dose Antiinflammatory dose 6-8 yr 200 mg (1 tab) 200 mg (1 tab) 9-11 yr 200 mg (1 tab) 200-400 mg (1-2 tab) 11-14 yr 200-400 mg (1-2 tab) 400 mg (2 tab) 15-adult 400 mg (2 tab) 600 mg (3 tab) ORAL NARCOTIC MEDICATION: You have been given a prescription for pain control. This medication is a narcotic. It's best taken with food, as nausea can result if taken on an empty stomach. Don't operate machinery or drive within six hours of taking this medication. Do not combine this medicine with alcohol, or with any medication which can cause sedation (such as cold tablets or sleeping pills) unless you get permission from the physician. Narcotics tend to cause constipation. If possible, drink plenty of fluids and eat a diet high in fiber and fruits. Please be aware that prescription narcotics also have the potential for abuse. People become addicted to these medications because of the general sense of wellbeing that they induce. This feeling along with a significant reduction in tension, anxiety, and aggression provides a stimulating seductive quality to these drugs. Once your pain is under control, we encourage you to discard your unused narcotics. Prescriptions: Oxycodone HCl/Acetaminophen [Percocet 5-325 mg Tablet] 1 tab PO Q6 PRN #25 tab PRN Reason: Referrals: ARMEN DOWNEY MD [Primary Care Provider] - Discharge Diet: As Tolerated Respiratory Treatments at Home: Deep Breathing/Coughing, Incentive Spirometer Discharge Activity: No Lifting Over 10 Pounds, No Lifting/Push/Pulling Report the Following to Your Physician Immediately: Fever over 101 Degrees, Unusual Bleeding, Redness, Swelling, Warmth, Increased Soreness
--- NOTE | 2019-08-15 16:12 | Operative Report ---
Operative Report DATE OF SURGERY: 08/15/19 PREOPERATIVE DIAGNOSIS: Left Distal Radius Fracture. Left Carpal Tunnel Syndro me POSTOPERATIVE DIAGNOSIS: Same OPERATION: ORIF Left Distal Radius 2 Part Intra-articular. Left Open Carpal Tunnel Release SURGEON: MY BALLARD ANESTHESIA: GA COMPLICATIONS: None ESTIMATED BLOOD LOSS: Minimal PROCEDURE: Indication for above procedure: 74-year-old female who sustained a fall onto her outstretched left wrist. Patient was seen at the emergency room x-rays demonstrate distal radius fracture. She was then seen in my office at which point we discussed findings on radiographs and given the amount of displacement and comminution decision was made to proceed with operative intervention. Risk and benefits of the surgical procedure were explained patient verbalized understanding consented for surgical procedure. Procedure In Detail: Patient was seen and evaluated in the preoperative holding area. The LEFT upper extremity was initialized and marked. Patient received 2g of Ancef IV for bacterial prophylaxis. Patient received regional block in the preoperative holding area. Patient was taken back to the operative room where transferred to the operative table and placed under general anesthesia. Once they were adequately anesthetized and a nonsterile tourniquet was placed on his upper e xtremity. A surgical team debriefing was performed ensuring all instrumentation was available, the surgical procedure was discussed with possible concerns reviewed. The upper extremity was prepped with chlorhexidine and alcohol and draped in a sterile fashion. A timeout was done identifying correct patient, procedure and extremity everyone in attendance agree with this and verbalized no concerns.The extremity was exsanguinated the tourniquet was inflated to 250 mmHg. A longitudinal skin incision was made via a volar approach of Cesar along the FCR tendon sheath. The FCR tendon sheath was opened and the FCR retracted ulnarly, the palmar cutaneous branch of the median nerve was identified and protected throughout the entirety of the case. The radial artery was identified and retracted radially. Blunt dissection was performed to the FPL which was carefully sweeped ulnarly. This brought me to the pronator quadratus which was elevated off of the distal radius via sharp dissection with a 15 blade to allow later repair. The fracture was then identified and a reduction maneuver was performed utilizing a [place] elevator. Provisional fixation was performed with a K wire while maintaining reduction of the articular surface. Acceptable reduction was then obtained and a Acumed 3 hole volar distal radius plate was placed into position and fixated with a K wire distally x2. AP and lateral radiographs were then obtained demonstrating appropriate placement of the plate and acceptable reduction of the fracture. Using a reduction tenaculum I was able to bring the plate down to bone distally. After drilling distally a cortical screw was used bringing the plate further down to bone, avoiding any liftoff of the plate from the volar cortex that could cause flexor tendon irritation post-operatively. Drilling the near cortex and to but not thru the far cortex a locking screw was then placed in the remaining holes. Measuring of the most ulnar screw was done under C-arm fluoroscopy to ensure adequate length and location to get maximal fixation of both the volar and dorsal ulnar corner. The previous cortex screw was removed and replaced with a locking screw. Two additional screws were placed into the styloid giving further stability to the radial styloid piece. AP and lateral radius were then done confirming appropriate placement of plate with no evidence of penetration intra-articular or within the DRUJ. I then turned my attention to the proximal screws. I drilled bicortically bringing the plate down to bone with a cortex screw. The remaining 2 holes proximally were drilled bicortically placing the appropriate size cortex in the proximal most hole and a locking screw in the distal shaft hole. AP and lateral radiographs were done confirming appropriate placement of the plate and reduction of the fracture there was synagogue of radial height, radial inclination and volar tilt. No evidence of dorsal screw prominence or intra-articular penetration of the DRUJ or radiocarpal joint. The wound was copiously irrigated with normal saline. There was no evidence of DRUJ instability on examination, Negative Parada's test, No crepitus with range of motion at the radiocarpal joint or DRUJ. C arm was performed to ensure optimal fracture stability. Given patient's preoperative carpal tunnel symptoms I did proceed with additional carpal tunnel release despite prior carpal tunnel surgical incision noted. Longitudinal skin incision was made. Blunt dissection was performed through the soft tissues. Palmar fascia was then incised in line with the skin incision. Remanent transverse carpal ligament was identified along with hematoma within the carpal canal transverse carpal ligament was released to the adipose protecting the superficial palmar arch. The volar intermedial fascia was then incised through the carpal tunnel incision and prior skin incision. Through the Cesar approach the median nerve was identified as well to ensure no evidence of iatrogenic injury at this level. [place] was placed proximally and distally to ensure adequate release. Wounds were copiously irrigated with normal saline. Tourniquet was deflated. Any peripheral bleeding was controlled with bipolar cautery to the wound was dry. The pronator quadratus was closed with interrupted 3-0 Monocryl suture. Subcutaneous tissues were closed with interrupted 4-0 Monocryl suture. Skin was closed with interrupted 4-0 nylon horizontal mattress at the carpal tunnel incision and through a running horizontal mattress at the forearm incision. Wound was dressed with sterile 4 x 4's and patient was placed in a well-padded volar splint. Sponge counts, instrument counts and needle counts were correct. There was no intraoperative complications patient tolerated procedure well stable to PACU. Postoperative plan: Patient will be switched to a removal Exos brace at first postoperative followup visit. Will obtain radiographs at followup of the wrist.
[2019-08-15] MEDS ORDERED: ONDANSETRON HCL INJ/PF 4 MG/2 ML SDV IV PRN (16:15)
[2019-08-15] MEDS ORDERED: MORPHINE SULFATE 10 MG/ML INJ IV PRN (16:15)
[2019-08-15 18:19] VITALS: BP 124/75
== END 2019-08-15 18:15 | disposition home or self-care (01) ==
LOC: OROUT 11:21
PROVIDERS: ATTEND Orthopaedic Surgery
DX: S52.532A Colles' fracture of left radius, initial encounter for closed fracture (principal); W01.0XXA Fall on same level from slipping, tripping and stumbling without subsequent striking against object, initial encounter; Y92.002 Bathroom of unspecified non-institutional (private) residence as the place of occurrence of the external cause; G56.02 Carpal tunnel syndrome, left upper limb; Z88.1 Allergy status to other antibiotic agents; Z79.899 Other long term (current) drug therapy; J45.909 Unspecified asthma, uncomplicated; E03.9 Hypothyroidism, unspecified; Z85.42 Personal history of malignant neoplasm of other parts of uterus; E89.0 Postprocedural hypothyroidism; I10 Essential (primary) hypertension; Z86.14 Personal history of Methicillin resistant Staphylococcus aureus infection; E66.3 Overweight
CPT/HCPCS: 73110; 25608; 64721; U0003; J2250; J3010; A9270; J2704; J0690; C9803; 87635; J3490

== ENCOUNTER 2019-10-30 14:26 | Inpatient (IN) | payer MEDICARE, OTHER ==
[2019-10-30 15:00] LABS: ABSOLUTE BASOPHILS # (AUTO) 0.1 10^3/uL (0.0-0.2); ABSOLUTE LYMPHOCYTES (AUTO) 1.1 10^3/uL (0.5-4.7); ABSOLUTE MONOCYTES (AUTO) 0.8 10^3/uL (0.1-1.4); ABSOLUTE NEUT (AUTO) 15.4 10^3/uL (1.7-8.2); BASOPHILS % (AUTO) 0.4 % (0-2); HEMATOCRIT 49.9 % (36.0-47.0); HEMOGLOBIN 16.6 g/dL (12.0-15.5); LYMPHOCYTES % (AUTO) 6.2 % (13-45); MEAN CORPUSCULAR HEMOGLOBIN 29.1 pg (27.0-33.4); MEAN CORPUSCULAR HGB CONC 33.4 g/dL (32.0-36.0); MEAN CORPUSCULAR VOLUME 87 fl (80-97); MONOCYTES % (AUTO) 4.7 % (3-13); PLATELET COUNT 406 10^3/uL (150-450); RED BLOOD COUNT 5.72 10^6/uL (3.72-5.28); RED CELL DISTRIBUTION WIDTH 14.1 % (11.5-14.0); SEGMENTED NEUTROPHILS % (AUTO) 88.7 % (42-78); TOTAL CELLS COUNTED % (AUTO) 100 %; WHITE BLOOD COUNT 17.3 10^3/uL (4.0-10.5)
[2019-10-30 15:23] LABS: ALBUMIN 4.6 g/dL (3.5-5.0); ALKALINE PHOSPHATASE 110 U/L (38-126); ANION GAP 14 (5-19); ASPARTATE AMINO TRANSFERASE 65 U/L (14-36); BILIRUBIN,DIRECT 0.2 mg/dL (0.0-0.4); BLOOD UREA NITROGEN 12 mg/dL (7-20); CALCIUM 10.2 mg/dL (8.4-10.2); CARBON DIOXIDE 30 mmol/L (22-30); CHLORIDE 95 mmol/L (98-107); GLUCOSE 130 mg/dL (75-110); POTASSIUM 3.3 mmol/L (3.6-5.0); TOTAL PROTEIN 8.2 g/dL (6.3-8.2)
[2019-10-30 16:09] LABS: ALCOHOL < 10 mg/dL (NONE DETECTED)
--- NOTE | 2019-10-30 17:02 | RADIOLOGY REPORT (SQ) ---
EXAM DESCRIPTION: CT HEAD WITHOUT IMAGES COMPLETED DATE/TIME: 10/30/2019 4:53 pm REASON FOR STUDY: fall, can't walk COMPARISON: None. TECHNIQUE: Axial images acquired through the brain without intravenous contrast. Images reviewed wi th bone, brain and subdural windows. Images stored on PACS. All CT scanners at this facility use dose modulation, iterative reconstruction, and/or weight based d osing when appropriate to reduce radiation dose to as low as reasonably achievable (ALARA). [facility]: Dose Right [facility]: CareDose [facility]: Dose Right [facility]: Teradose 4D [facility]: Smart [employer] RADIATION DOSE: CT Rad equipment meets quality standard of care and radiation dose reduction techniq ues were employed. CTDIvol: 53.2 mGy. DLP: 964 mGy-cm. mGy. LIMITATIONS: None. FINDINGS: VENTRICLES: Prominent. CEREBRUM: No masses. No hemorrhage. No midline shift. Areas of low density in the white matter mos t likely due to chronic micro-vascular ischemic change. No evidence for acute infarction. CEREBELLUM: No masses. No hemorrhage. No alteration of density. No evidence for acute infarction. EXTRAAXIAL SPACES: Mild age-related involutional change. No fluid collections. No masses. ORBITS AND GLOBE: No intra- or extraconal masses. Normal contour of globe without masses. CALVARIUM: No fracture. SOFT TISSUES: No mass or hematoma. OTHER: No other significant finding. IMPRESSION: MILD CHRONIC CHANGES OF ATROPHY AND MICROVASCULAR ISCHEMIA. NO ACUTE PROCESS. EVIDENCE OF ACUTE STROKE: NO. TECHNICAL DOCUMENTATION: JOB ID: [id number] Quality ID # [id number]: Final reports with documentation of one or more dose reduction techniques (e.g., Au tomated exposure control, adjustment of the mA and/or kV according to patient size, use of iterative reconstruction technique) 2010 [employer]- All Rights Reserved Reading location - IP/workstation name: [email or web address]
[2019-10-30 17:06] LABS: CREATINE KINASE MB 10.2 ng/mL (<4.55); TROPONIN I 0.028 ng/mL
--- NOTE | 2019-10-30 17:17 | RADIOLOGY REPORT (SQ) ---
EXAM DESCRIPTION: CHEST 2 VIEWS IMAGES COMPLETED DATE/TIME: 10/30/2019 5:01 pm REASON FOR STUDY: fall, can't wall COMPARISON: 05/31/2017 EXAM PARAMETERS: NUMBER OF VIEWS: two views TECHNIQUE: Digital Frontal and Lateral radiographic views of the chest acquired. RADIATION DOSE: NA LIMITATIONS: none FINDINGS: LUNGS AND PLEURA: Left upper lobe pulmonary nodule again identified. No acute pulmonary consolidation. No pneumothorax or pleural effusion. MEDIASTINUM AND HILAR STRUCTURES: No masses or contour abnormalities. HEART AND VASCULAR STRUCTURES: Stable appearance. No evidence for failure. BONES: The osseous structures are stable in appearance. No acute findings. HARDWARE: None in the chest. OTHER: No other significant finding. IMPRESSION: 1. As on the prior examination dated 05/31/2017, left upper lobe pulmonary nodule. 2. No acute pulmonary findings. TECHNICAL DOCUMENTATION: JOB ID: [id number] 2010 [employer]- All Rights Reserved Reading location - IP/workstation name: [email or web address]
[2019-10-30] MEDS ORDERED: NORMAL SALINE 1000 ML 1,000 ML IV ONE (18:33)
--- NOTE | 2019-10-30 18:57 | ER Document Report ---
ED General - General Chief Complaint: Fall Stated Complaint: ALTERED MENTAL STATUS Time Seen by Provider: 10/30/19 15:35 Primary Care Provider: ARMEN DOWNEY MD [Primary Care Provider] - Follow up as needed Notes: 74-year-old female brought to the emergency department by EMS for a fall at home and inability to walk. Patient states that she fell from a standing position and landed on the floor at home on Wednesday and has been unable to get up since then. States that she was unable to find the phone and was unable to get to the bathroom or to any food or water for the past 2 days. Patient states that her children type to call her multiple times and she was not able to answer the phone so they finally called the police who were sent out to do a well check on her today. She was unable to walk to the ambulance. Denies any pain initially but now complains of pain on her buttocks where she was laying for most of the weekend. Denies hitting her head and her fall. Admits to taking baby aspirin. TRAVEL OUTSIDE OF THE [place] IN LAST 30 DAYS: No - Related Data Allergies/Adverse Reactions: azithromycin [From Zithromax Z-Gordon] Allergy (Severe, Verified 08/09/19 14:21) rash,GI upset clarithromycin [From Biaxin] Allergy (Severe, Verified 08/09/19 14:21) rash,GI upset erythromycin base [Erythromycin Base] Allergy (Severe, Verified 08/09/19 14:21) rash,GI upset ciprofloxacin [From Cipro] Adverse Reaction (Verified 08/09/19 14:21) n/v/d clindamycin Adverse Reaction (Verified 08/09/19 14:21) rash, GI upset turkey Adverse Reaction (Severe, Uncoded 08/09/19 14:21) GI upset Past Medical History - General Information source: Patient - Social History Smoking Status: Never Smoker Chew tobacco use (# tins/day): No Frequency of alcohol use: None Drug Abuse: None Family History: Reviewed & Not Pertinent - Past Medical History Cardiac Medical History: Reports: Hx Hypercholesterolemia, Hx Hypertension - 8 yrs- takes meds Denies: Hx Atrial Fibrillation, Hx Congestive Heart Failure, Hx Coronary Artery Disease, Hx Heart Attack, Hx Peripheral Vascular Disease, Hx Pulmonary Embolism, Hx Heart Murmur Pulmonary Medical History: Reports: Hx Asthma - daily meds, no hospitalizations, Hx Bronchitis - x 1 episode/year, Hx Pneumonia - no hospitalization Denies: Hx COPD, Hx Respiratory Failure, Hx Sleep Apnea, Hx Tuberculosis Neurological Medical History: Denies: Hx Cerebrovascular Accident, Hx Seizures Endocrine Medical History: Reports: Hx Hypothyroidism - parathyroid/thyroid surgery 2010. Denies: Hx Graves' Disease, Hx Hyperthyroidism Renal/ Medical History: Denies: Hx End Stage Renal Disease, Hx Kidney Stones, Hx Ovarian Cysts, Hx Peritoneal Dialysis, Hx Pelvic Inflammatory Disease Malignancy Medical History: Denies: Hx Breast Cancer, Hx Cervical Cancer, Hx Lung Cancer, Hx Ovarian Cancer - Endometrial Cancer-hysterectomy 2013 GI Medical History: Denies: Hx Crohn's Disease, Hx Gastroesophageal Reflux Disease, Hx Hepatitis, Hx Hiatal Hernia, Hx Irritable Bowel, Hx Liver Failure, Hx Pancreatitis, Hx Ulcer Musculoskeletal Medical History: Reports Hx Arthritis - Hands , Denies Hx Fibromyalgia, Denies Hx Muscular Dystrophy, Denies Hx Systemic Lupus Erythematosus Psychiatric Medical History: Reports: Hx Depression Denies: Hx Bipolar Disorder, Hx Post Traumatic Stress Disorder, Hx Schizophrenia Traumatic Medical History: Reports: Hx Fractures - RUE wth dislocation of shoulder 2006,immobilized with sling, denies surgery Infectious Medical History: Denies: Hx Hepatitis Past Surgical History: Reports: Hx Hysterectomy. Denies: Hx Appendectomy, Hx Bowel Surgery, Hx Section, Hx Cholecystectomy, Hx Colostomy, Hx Coronary Artery Bypass Graft, Hx Gastric Bypass Surgery, Hx Herniorrhaphy, Hx Mastectomy, Hx Open Heart Surgery, Hx Pacemaker, Hx Tonsillectomy, Hx Tubal Ligation - Immunizations Hx Diphtheria, Pertussis, Tetanus Vaccination: Yes - "A long time ago" Hx Pneumococcal Vaccination: 12/07/11 Review of Systems - Review of Systems Constitutional: See HPI, Weakness EENT: No symptoms reported Musculoskeletal: See HPI - Inability to ambulate. -: Yes All other systems reviewed and negative Physical Exam - Vital signs Vitals: Temp Resp Pulse Ox 99.2 F 23 H 97 10/30/19 14:51 10/30/19 14:51 10/30/19 14:51 Interpretation: Normal - Notes Notes: GENERAL: Alert, interacts well. No acute distress. HEAD: Normocephalic, atraumatic EYES: Pupils equal, round and reactive to light, extraocular movements intact. ENT: Oral mucosa moist, tongue midline. NECK: Full range of motion, supple, trachea midline. LUNGS: Clear to auscultation bilaterally, no wheezes, rales or rhonchi, no respiratory distress. HEART: Regular rate and rhythm, no murmurs, gallops, rubs. ABDOMEN: Soft, nontender, nondistended, bowel sounds present in all 4 quadrants. EXTREMITIES: Moves all 4 extremities spontaneously, 5 out of 5 muscle strength in all 4 extremities, no edema, radial and dorsalis pedis pulses 2/4 bilaterally. No cyanosis. NEUROLOGICAL: Alert and oriented x3, normal speech, cranial nerves II through XII grossly intact, biceps and patellar DTRs 2+ bilaterally. PSYCH: Normal mood, normal affect. SKIN: Superficial abrasion to the right shinto, skin breakdown beneath her pannus, stage II decubitus ulcer across her sacrum and buttocks. No signs of secondary bacterial infection. Course - Re-evaluation Re-evalutation: 10/30/19 18:58 CBC shows leukocytosis of 17.3, hemoglobin is elevated at 16.6, suspect some of this is hemoconcentration from dehydration, CMP shows slight low potassium at 3.3, this will be repleted by mouth, CK is elevated at 1065, CK-MB elevated at 10.2, troponin is detectable but negative at 0.028. Chest X-Ray 10/30/19 16:09 IMPRESSION: 1. As on the prior examination dated 05/31/2017, left upper lobe pu lmonary nodule. 2. No acute pulmonary findings. Head CT 10/30/19 16:09 IMPRESSION: MILD CHRONIC CHANGES OF ATROPHY AND MICROVASCULAR ISCHEMIA. NO ACUTE PROCESS. EVIDENCE OF ACUTE STROKE: NO. 10/30/19 18:59 Patient was not initially tachycardic, on recheck patient was tachycardic with PACs. EKG was repeated in the computer interpreted as ST segment elevation with probable inferior injury. Discussed EKG with Dr. Dejesus who also does not see any signs of a STEMI on this EKG. 10/30/19 20:[address] Menendez my concerns regarding this patient, her likely rhabdomyolysis, her potential for worsening renal function though it is normal at this time and her need for monitoring. Dr. Menendez agrees to admit the patient to his service on the medical floor. - Vital Signs Vital signs: Temp Pulse Resp BP Pulse Ox 99.2 F 24 H 147/68 H 93 10/30/19 14:51 10/30/19 20:01 10/30/19 20:01 10/30/19 20:01 - Laboratory Result Diagrams: 10/30/19 14:05 10/30/19 14:05 Laboratory results interpreted by me: 10/30/19 10/30/19 10/30/19 14:05 14:05 14:05 WBC 17.3 H RBC 5.72 H Hgb 16.6 H Hct 49.9 H RDW 14.1 H Lymph % (Auto) 6.2 L Absolute Neuts (auto) 15.4 H Seg Neutrophils % 88.7 H Potassium 3.3 L Chloride 95 L Glucose 130 H POC Glucose AST 65 H Creatine Kinase 1065 H CK-MB (CK-2) Urine Protein Urine Ketones Urine Blood Urine Nitrite Urine Urobilinogen Ur Leukocyte Esterase 10/30/19 10/30/19 10/30/19 14:05 15:30 19:11 WBC RBC Hgb Hct RDW Lymph % (Auto) Absolute Neuts (auto) Seg Neutrophils % Potassium Chloride Glucose POC Glucose 123 H AST Creatine Kinase CK-MB (CK-2) 10.20 H Urine Protein 30 H Urine Ketones TRACE H Urine Blood SMALL H Urine Nitrite POSITIVE H Urine Urobilinogen 2.0 H Ur Leukocyte Esterase TRACE H - EKG Interpretation by Me Additional EKG results interpreted by me: 10/30/19 19:03 Initial EKG shows sinus rhythm at a rate of 87, left anterior hemiblock, incomplete right bundle branch block, poor R wave progression, no ST segment elevations or depressions per my interpretation. Repeat EKG shows sinus tachycardia at a rate of 115, multiple PVCs and PACs, left anterior hemiblock, slight ST segment depressions in 1 and aVL, computer interpretation shows ST segment elevation but I do not see this. Poor R wave progression per my interpretation. Discharge - Discharge Clinical Impression: Unable to ambulate, Dehydration Fall at home Qualifiers: Encounter type: initial encounter Qualified Code(s): W19.XXXA - Unspecified fall, initial encounter; Y92.009 - Unspecified place in unspecified non- institutional (private) residence as the place of occurrence of the external cause Rhabdomyolysis Qualifiers: Rhabdomyolysis type: non-traumatic Qualified Code(s): M62.82 - Rhabdomyolysis Condition: Fair Disposition: ADMITTED INPATIENT Admitting Provider: Shon (Hospitalist) Unit Admitted: Medical Floor Referrals: ARMEN DOWNEY MD [Primary Care Provider] - Follow up as needed
[2019-10-30] MEDS ORDERED: POTASSIUM CHLORIDE 10 MEQ TABLET.ER PO ONE (18:59)
[2019-10-30 19:28] LABS: APPEARANCE,URINE CLEAR; BILIRUBIN,URINE NEGATIVE (NEGATIVE); GLUCOSE, URINE NEGATIVE (NEGATIVE); KETONES,URINE TRACE mg/dL (NEGATIVE); LEUKOCYTE ESTERASE,URINE TRACE (NEGATIVE); NITRITE,URINE POSITIVE (NEGATIVE); PROTEIN,URINE 30 mg/dL (NEGATIVE); URINE SPECIFIC GRAVITY 1.018
[2019-10-30 19:29] LABS: COLOR,URINE DARK YELLOW
--- NOTE | 2019-10-30 19:29 | EKG REPORT ---
SEVERITY:- ABNORMAL ECG - SINUS TACHYCARDIA PROBABLE ANTEROSEPTAL INFARCT, OLD IRBBB AND LAHB : Confirmed by: Ana Dejesus MD 30-Oct-2019 19:28:26
--- NOTE | 2019-10-30 19:30 | EKG REPORT ---
SEVERITY:- ABNORMAL ECG - SINUS RHYTHM VENTRICULAR PREMATURE COMPLEX INCOMPLETE RBBB AND LAFB CONSIDER ANTEROSEPTAL INFARCT : Confirmed by: Ana Dejesus MD 30-Oct-2019 19:29:52
[2019-10-30 19:46] LABS: URINE AMPHETAMINES SCREEN NEGATIVE; URINE BARBITURATES SCREEN NEGATIVE; URINE COCAINE SCREEN NEGATIVE; URINE MARIJUANA (THC) SCREEN NEGATIVE; URINE METHADONE SCREEN NEGATIVE; URINE PHENCYCLIDINE SCREEN NEGATIVE
[2019-10-30 19:52] LABS: URINE BENZODIAZEPINES SCREEN UNCONFIRMED POSITIVE
[2019-10-30] MEDS ORDERED: CEFTRIAXONE 1 GM/D5W RTU 1 GM/50 ML RTUPB IV ONE (20:46)
[2019-10-30] MEDS ORDERED: LEVALBUTEROL HCL NEB 0.63 MG/3 ML AMPUL NEB PRN (21:41)
[2019-10-30] MEDS ORDERED: ONDANSETRON HCL INJ/PF 4 MG/2 ML SDV IV PRN (21:41)
[2019-10-30] MEDS ORDERED: MAGNESIUM HYDROXIDE SUSP 30 ML UDCUP PO PRN (21:41)
[2019-10-30] MEDS ORDERED: MAG HYDROX/AL HYDROX/SIMETH SUSP 30 ML UDCUP PO PRN (21:41)
[2019-10-30] MEDS ORDERED: METOPROLOL TARTRATE PF/INJ 5 MG/5 ML SDV IV PRN (21:50)
[2019-10-30] MEDS ORDERED: MORPHINE SULFATE 10 MG/ML INJ IV PRN ×4 (21:50→22:07)
[2019-10-30] MEDS ORDERED: LORAZEPAM INJ 2 MG/1 ML VIAL IV PRN (21:50)
[2019-10-30] MEDS ORDERED: GUAIFENESIN SYRP 200 MG/10 ML UDC PO PRN (21:50)
[2019-10-30] MEDS ORDERED: ACETAMINOPHEN 325 MG TABLET PO PRN (21:50)
[2019-10-30] MEDS ORDERED: HYDRALAZINE HCL INJ/PF 20 MG/1 ML SDV IV PRN (21:50)
[2019-10-30] MEDS ORDERED: MELATONIN 5 MG TABLET PO PRN (21:50)
[2019-10-30] MEDS: FAMOTIDINE 20 MG TABLET PO SCH (22:12)
[2019-10-30] MEDS: HEPARIN SOD (PORCINE) 5,000 UNIT/ML 1 ML VIAL SUBCUT SCH (22:13)
[2019-10-31] MEDS: LEVALBUTEROL HCL NEB 1.25 MG/3 ML AMPUL NEB SCH ×4 (01:01→23:48)
[2019-10-31] MEDS: IPRATROPIUM BROMIDE 0.02% NEB 0.5 MG/2.5 ML AMPUL NEB SCH ×4 (01:01→23:48)
--- NOTE | 2019-10-31 01:11 | PDOC H&P ---
History of Present Illness Admission Date/PCP: 10/30/2019 21:17 ARMEN DOWNEY MD Patient complains of: Generalized weakness History of Present Illness: NABEEL BENAVIDES is a 74 year old female who presented to the emergency room with a 2-day history of generalized weakness. She admits waking up, sitting on the side of the bed, trying to stand to go to the bathroom and being so weak that s he just slid to the floor beside the bed at home on the evening of 10/28/2019. She continued to experience severe generalized weakness, being unable to get up from the floor and she was also unable to crawl sufficiently far to get to a phone, bathroom or food and water. She admits accompanying pain in her lower back. She admits associated abrasions of her bilateral elbows from crawling on the floor. She denies other associated or accompanying signs and symptoms. She admits a prior similar episode in September resulting in a fracture of her left wrist. She has not identified any aggravating or ameliorating factors for her generalized weakness. Her family was unable to contact her and called local law enforcement to do a wellness check leading to her discovery today. She denies any loss of consciousness or other injuries in her fall. In the emergency room she was found to have a CPK of 1065 and myoglobin present in the urine. She was subsequently admitted to the hospital for further evaluation and treatment. Past Medical History Cardiac Medical History: Reports: Hyperlipidema, Hypertension Denies: Atrial Fibrillation, Congestive Heart Failure, Coronary Artery Disease, DVT, Myocardial Infarction, Peripheral Vascular Disease, Pulmonary Emb olism, Heart Murmur Pulmonary Medical History: Reports: Asthma, Bronchitis, Pneumonia Denies: Chronic Obstructive Pulmonary Disease (COPD), Respiratory Failure, Sleep Apnea, Tuberculosis EENT Medical History: Reports: Cataracts, Eyes - Wears reading glasses Denies: Ears - Hearing aids Neurological Medical History: Reports: Migraine Denies: Hemorrhagic CVA, Ischemic CVA, Seizures Endocrine Medical History: Reports: Hypothyroidism, Obesity Denies: Diabetes Mellitus Type 1, Diabetes Mellitus Type 2, Hyperthyroidism Renal/ Medical History: Denies: Chronic Kidney Disease, Nephrolithiasis Malignancy Medical History: Reports: Other - Endometrial cancer GI Medical History: Denies: Cirrhosis, Crohn's Disease, Gastroesophageal Reflux Disease, Hepatitis, Hiatal Hernia, Peptic Ulcer Disease, Ulcerative Colitis Musculoskeltal Medical History: Reports: Arthritis - Generalized osteoarthritis Denies: Fibromyalgia, Gout Skin Medical History: Denies: Eczema, Psoriasis Psychiatric Medical History: Reports: Depression, General Anxiety Disorder Denies: Alcohol Dependency, Substance Abuse, Tobacco Dependency Traumatic Medical History: Reports: None Hematology: Denies: Anemia, Bleeding Tendencies Infectious Medical History: Reports: None Past Surgical History Past Surgical History: Left wrist fracture due to fall in September 2019 required ORIF performed by Dr[address] Flood Past Surgical History: Reports: Hysterectomy, Knee Replacement, Orthopedic Surgery - TKR bilat, Rt shoulder arthroplasty, Left carpal tunnel, trigger finger, Thyroidectomy, Other - Cataract OU, hemihyroidectomy for parathyroid ad enomas, sinus surgery Social History Information Source: Patient Lives with: Alone Smoking Status: Never Smoker Electronic Cigarette use?: No Frequency of Alcohol Use: None Hx Recreational Drug Use: No Drugs: None Hx Prescription Drug Abuse: No - Advance Directive Resuscitation Status: Full Code Surrogate healthcare decision maker:: Rey Benavides Family History Family History: CAD, Malignancy Parental Family History Reviewed: Yes Children Family History Reviewed: No Sibling(s) Family History Reviewed.: Yes Medication/Allergy Home Medications: Albuterol Sulfate [Proair HFA] 2 puff IH Q4 PRN 07/31/15 Amlodipine Besylate 5 mg PO QAM 07/31/15 Aspirin [Aspirin EC] 81 mg PO QAM 07/31/15 Atorvastatin Calcium [Lipitor 40 mg Tablet] 40 mg PO QHS 07/31/15 Buspirone HCl [Buspar 10 mg Tablet] 20 mg PO TID 07/31/15 Clonazepam [Klonopin 0.5 mg Tablet Rapid Dissolve] 0.5 mg PO BID 07/31/15 Fluticasone Propionate [Flonase Nasal [place] 50 Mcg/[place] 16 gm] 2 sprays NASL Q12 07/31/15 Fluticasone/Salmeterol [Advair 500-50 Diskus 28 Dose] 1 inh IH Q12H 07/31/15 Levothyroxine Sodium 50 mcg PO QAM 07/31/15 Montelukast Sodium [Singulair] 10 mg PO QPM 07/31/15 Naratriptan HCl [Amerge] 2.5 mg PO DAILY PRN 07/31/15 Sumatriptan Succinate [Imitrex 100 mg Tablet] 100 mg PO ASDIR PRN 07/31/15 Temazepam [Restoril] 30 mg PO QHS 07/31/15 Telmisartan/Hydrochlorothiazid [Micardis HCT 40-12.5 mg Tablet] 1 each PO QAM 11/27/15 Hydrocodone/Acetaminophen [[place] 5-325 mg Tablet] 1 tab PO Q6 PRN 3 Days #12 tablet 08/09/19 Sertraline HCl [Zoloft 50 mg Tablet] 50 mg PO DAILY 08/14/19 Oxycodone HCl/Acetaminophen [Percocet 5-325 mg Tablet] 1 tab PO Q6 PRN #25 tab 08/15/19 Allergies/Adverse Reactions: azithromycin [From Zithromax Z-Gordon] Allergy (Severe, Verified 08/09/19 14:21) rash,GI upset clarithromycin [From Biaxin] Allergy (Severe, Verified 08/09/19 14:21) rash,GI upset erythromycin base [Erythromycin Base] Allergy (Severe, Verified 08/09/19 14:21) rash,GI upset ciprofloxacin [From Cipro] Adverse Reaction (Verified 08/09/19 14:21) n/v/d clindamycin Adverse Reaction (Verified 08/09/19 14:21) rash, GI upset turkey Adverse Reaction (Severe, Uncoded 08/09/19 14:21) GI upset Review of Systems Constitutional: PRESENT: as per HPI, weakness - Generalized. ABSENT: chills, fever(s) Eyes: ABSENT: visual disturbances, other - Eye pain Ears: ABSENT: hearing changes, other - Ear pain Nose, Mouth, and Throat: ABSENT: headache(s), sore throat Cardiovascular: ABSENT: chest pain, palpitations Respiratory: ABSENT: cough, dyspnea Gastrointestinal: ABSENT: abdominal pain, constipation, diarrhea, nausea, vomiting Genitourinary: ABSENT: dysuria, hematuria Musculoskeletal: PRESENT: as per HPI, muscle weakness - Generalized, other - Pain in right buttocks and right hip. ABSENT: joint swelling Integumentary: ABSENT: pruritus, rash Neurological: ABSENT: confusion, convulsions, focal weakness, memory loss, syncope Psychiatric: ABSENT: anxiety, depression Endocrine: ABSENT: cold intolerance, heat intolerance Hematologic/Lymphatic: ABSENT: easy bleeding, easy bruising Allergic/Immunologic: ABSENT: seasonal rhinorrhea Physical Exam Vital Signs: Temp Pulse Resp BP Pulse Ox 99.2 F 26 H 132/74 H 94 10/30/19 14:51 10/30/19 21:01 10/30/19 21:01 10/30/19 21:00 Intake & Output 10/28/19 10/29/19 10/30/19 23:59 23:59 23:59 Intake Total 1000 Balance 1000 Weight 88.451 kg General appearance: PRESENT: no acute distress, cooperative, obese Head exam: PRESENT: atraumatic, normocephalic Eye exam: PRESENT: conjunctiva pink. ABSENT: conjunctival injection, scleral icterus Ear exam: PRESENT: normal external ear exam. ABSENT: bleeding, drainage Mouth exam: PRESENT: dry mucosa, neck supple Neck exam: ABSENT: thyromegaly, tracheal deviation Respiratory exam: PRESENT: clear to auscultation zac, symmetrical, unlabored Cardiovascular exam: PRESENT: RRR. ABSENT: clicks, gallop, rubs Pulses: PRESENT: normal radial pulses, normal dorsalis pedis pul Vascular exam: PRESENT: normal capillary refill. ABSENT: pallor GI/Abdominal exam: PRESENT: normal bowel sounds, soft. ABSENT: tenderness Rectal exam: PRESENT: deferred Extremities exam: PRESENT: other - Abrasions of bilateral elbows. ABSENT: joint swelling, pedal edema Musculoskeletal exam: ABSENT: deformity, dislocation Neurological exam: PRESENT: alert, oriented to person, oriented to place, oriented to time, oriented to situation, CN II-XII grossly intact. ABSENT: motor sensory deficit Psychiatric exam: PRESENT: appropriate affect, normal mood Skin exam: PRESENT: abrasion - Bilateral elbows, dry, erythema - Sacral region with nonblanching stage II decubitus changes present., intact, rash - Verito rash of bilateral intertriginous groin areas, warm. ABSENT: jaundice, urticaria Results Laboratory Results: 10/30/19 14:05 10/30/19 14:05 10/30/19 10/30/19 10/30/19 14:05 14:05 19:11 WBC 17.3 H RBC 5.72 H Hgb 16.6 H Hct 49.9 H MCV 87 MCH 29.1 MCHC 33.4 RDW 14.1 H Plt Count 406 Seg Neutrophils % 88.7 H Sodium 138.9 Potassium 3.3 L Chloride 95 L Carbon Dioxide 30 Anion Gap 14 BUN 12 Creatinine 0.53 Est GFR ( Amer) > 60 Glucose 130 H Calcium 10.2 Magnesium 1.9 Total Bilirubin 1.0 AST 65 H Alkaline Phosphatase 110 Total Protein 8.2 Albumin 4.6 Urine Color DARK YELLOW Urine Appearance CLEAR Urine pH 5.0 Ur Specific [place] 1.018 Urine Protein 30 H Urine Glucose (UA) NEGATIVE Urine Ketones TRACE H Urine Blood SMALL H Urine Nitrite POSITIVE H Ur Leukocyte Esterase TRACE H Urine WBC (Auto) 13 Urine RBC (Auto) 0 10/30/19 10/30/19 14:05 14:05 Creatine Kinase 1065 H CK-MB (CK-2) 10.20 H Troponin I 0.028 Impressions: Chest X-Ray 10/30/19 16:09 IMPRESSION: 1. As on the prior examination dated 05/31/2017, left upper lobe pulmonary nodule. 2. No acute pulmonary findings. Head CT 10/30/19 16:09 IMPRESSION: MILD CHRONIC CHANGES OF ATROPHY AND MICROVASCULAR ISCHEMIA. NO ACUTE PROCESS. EVIDENCE OF ACUTE STROKE: NO. Assessment and Plan - Diagnosis (1) Generalized weakness Is this a current diagnosis for this admission?: Yes (2) Fall at home Qualifiers: Encounter type: initial encounter Qualified Code(s): W19.XXXA - Unspecified fall, initial encounter; Y92.009 - Unspecified place in unspecified non- institutional (private) residence as the place of occurrence of the external cause Is this a current diagnosis for this admission?: Yes (3) Rhabdomyolysis Qualifiers: Rhabdomyolysis type: traumatic Encounter type: initial encounter Qualified Code(s): T79.6XXA - Traumatic ischemia of muscle, initial encounter Is this a current diagnosis for this admission?: Yes (4) Unable to ambulate Is this a current diagnosis for this admission?: Yes (5) Sacral decubitus ulcer, stage II Is this a current diagnosis for this admission?: Yes (6) Intertriginous candidiasis Is this a current diagnosis for this admission?: Yes (7) Abrasion of left elbow Qualifiers: Encounter type: initial encounter Qualified Code(s): S50.312A - Abrasion of left elbow, initial encounter Is this a current diagnosis for this admission?: Yes (8) Abrasion of right elbow Qualifiers: Encounter type: initial encounter Qualified Code(s): S50.311A - Abrasion of right elbow, initial encounter Is this a current diagnosis for this admission?: Yes - Plan Summary Summary: Patient will be admitted medical floor where she will receive routine supportive and symptomatic cares. A PT consultation and a case management consultation will be obtained. Every 4 hours neuro checks will be obtained. Patient will be treated with IV fluids utilizing D5LR at 167 mL/h. Serial CPKs and metabolic profiles will be obtained. She will use morphine sulfate 2 to 4 mg IV every 2 hours as needed for pain. She will use Ativan 1 mg IV every 4 hours as needed for anxiety or restlessness. She will be continued on her usual home medications, as appropriate, when her medication list can be verified and reconciled. She will be placed on a cardiac diet. CBCs, metabolic profiles and additional laboratory and/or radiographic evaluations will be obtained as needed. - Time Time Spent with patient: 15-24 minutes Medications reviewed and adjusted accordingly: Yes Anticipated Discharge Disposition: Senior Living Facility Anticipated Discharge Timeframe: when bed available - Inpatient Certification Based on my medical assessment, after consideration of the patient's comorbidities, presenting symptoms, or acuity I expect that the services needed warrant INPATIENT care.: Yes I certify that my determination is in accordance with my understanding of Medicare's requirements for reasonable and necessary INPATIENT services [42 CFR 412.3e].: Yes Medical Necessity: Need Close Monitoring Due to Risk of Patient Decompensation, Need For IV Fluids, Need for Neurological Checks
[2019-10-31] MEDS: DEXTROSE 5%-LACTATED RINGERS 1,000 ML IV PRN ×2 (01:15→09:03)
[2019-10-31] MEDS ORDERED: NYSTATIN TOPICAL POWDER 15 GM TP SCH (01:30)
[2019-10-31 04:35] LABS: HEMATOCRIT 43.5 % (36.0-47.0); HEMOGLOBIN 14.5 g/dL (12.0-15.5); MEAN CORPUSCULAR HGB CONC 33.4 g/dL (32.0-36.0); MEAN CORPUSCULAR VOLUME 87 fl (80-97); PLATELET COUNT 293 10^3/uL (150-450); RED BLOOD COUNT 5.01 10^6/uL (3.72-5.28); RED CELL DISTRIBUTION WIDTH 14.1 % (11.5-14.0); WHITE BLOOD COUNT 15.1 10^3/uL (4.0-10.5)
[2019-10-31 04:54] LABS: ANION GAP 9 (5-19); BLOOD UREA NITROGEN 13 mg/dL (7-20); CALCIUM 9.2 mg/dL (8.4-10.2); CARBON DIOXIDE 28 mmol/L (22-30); CHLORIDE 102 mmol/L (98-107); CHOLESTEROL 121.98 mg/dL (0-200); CREATINE KINASE 1240 U/L (30-135); GLUCOSE 155 mg/dL (75-110); POTASSIUM 3.1 mmol/L (3.6-5.0); TRIGLYCERIDES 73 mg/dL (<150)
[2019-10-31 05:05] LABS: DIRECT LDL 58 mg/dL (<100)
[2019-10-31] MEDS: HEPARIN SOD (PORCINE) 5,000 UNIT/ML 1 ML VIAL SUBCUT SCH ×3 (05:56→21:48)
[2019-10-31 06:22] LABS: FREE T3 3.11 pg/mL (2.77-5.27)
[2019-10-31 06:36] LABS: THYROID STIMULATING HORMONE 0.94 uIU/mL (0.47-4.68)
[2019-10-31] MEDS: BUDESONIDE NEB 0.5 MG/2 ML AMPUL NEB SCH ×2 (07:57→20:17)
[2019-10-31] MEDS: FAMOTIDINE 20 MG TABLET PO SCH ×2 (09:03→21:46)
[2019-10-31] MEDS: NYSTATIN TOPICAL POWDER 15 GM TP SCH ×2 (09:03→17:57)
[2019-10-31] MEDS: DOCUSATE SODIUM 100 MG CAPSULE PO SCH ×3 (09:03→17:57)
--- NOTE | 2019-10-31 17:02 | EKG REPORT ---
SEVERITY:- ABNORMAL ECG - SINUS TACHYCARDIA WITH IRREGULAR RATE 79-160 INCOMPLETE RBBB AND LAFB PROBABLE ANTEROSEPTAL INFARCT, AGE INDETERM : Confirmed by: Ana Dejesus MD 31-Oct-2019 17:02:08
--- NOTE | 2019-10-31 17:04 | EKG REPORT ---
SEVERITY:- ABNORMAL ECG - SINUS TACHYCARDIA VENTRICULAR PREMATURE COMPLEX INCOMPLETE RIGHT BUNDLE BRANCH BLOCK AND LAHB PROBABLE ANTEROSEPTAL INFARCT, AGE INDETERM : Confirmed by: Ana Deejsus MD 31-Oct-2019 17:03:06
[2019-10-31] MEDS ORDERED: HYDROCODONE/ACETAMINOPHEN 5-325 MG TABLET PO PRN (18:16)
[2019-10-31] MEDS ORDERED: SUMATRIPTAN SUCCINATE 100 MG TABLET PO PRN (18:16)
[2019-10-31] MEDS ORDERED: PROMETHAZINE HCL 25 MG TABLET PO PRN (18:16)
--- NOTE | 2019-10-31 18:31 | PDOC PROGRESS REPORT ---
Subjective Progress Note for:: 10/31/19 Subjective:: Feels better today. States she was weak yesterday and unable to get up due to weak extremities. Reason For Visit: FALL AT HOME,RHABDOMYOLYSIS,UNABLE TO AMBULATE Physical Exam Vital Signs: Temp Pulse Resp BP Pulse Ox 98.7 F 71 16 112/60 92 10/31/19 16:00 10/31/19 17:04 10/31/19 17:04 10/31/19 16:00 10/31/19 17:04 Intake & Output 10/30/19 10/31/19 11/01/19 06:59 06:59 06:59 Intake Total 1150 1300 Output Total 200 Balance 1150 1100 Weight 88.6 kg General appearance: PRESENT: no acute distress, cooperative Neck exam: ABSENT: JVD Respiratory exam: PRESENT: symmetrical, unlabored. ABSENT: tachypnea, wheezes Cardiovascular exam: PRESENT: RRR, +S1, +S2. ABSENT: tachycardia GI/Abdominal exam: PRESENT: soft. ABSENT: rebound, rigid, tenderness Neurological exam: PRESENT: alert, awake, oriented to person, oriented to place, oriented to time Results Laboratory Results: 10/31/19 04:14 10/31/19 04:14 10/30/19 10/31/19 10/31/19 19:11 04:14 04:14 WBC 15.1 H RBC 5.01 Hgb 14.5 D Hct 43.5 MCV 87 MCH 29.0 MCHC 33.4 RDW 14.1 H Plt Count 293 Sodium 138.9 Potassium 3.1 L Chloride 102 Carbon Dioxide 28 Anion Gap 9 BUN 13 Creatinine 0.55 Est GFR ( Amer) > 60 Glucose 155 H Calcium 9.2 Magnesium 1.8 Triglycerides 73 Cholesterol 121.98 LDL Cholesterol Direct 58 VLDL Cholesterol 15.0 HDL Cholesterol 49 TSH Free T3 pg/mL Urine Color DARK YELLOW Urine Appearance CLEAR Urine pH 5.0 Ur Specific [place] 1.018 Urine Protein 30 H Urine Glucose (UA) NEGATIVE Urine Ketones TRACE H Urine Blood SMALL H Urine Nitrite POSITIVE H Ur Leukocyte Esterase TRACE H Urine WBC (Auto) 13 Urine RBC (Auto) 0 10/31/19 04:14 WBC RBC Hgb Hct MCV MCH MCHC RDW Plt Count Sodium Potassium Chloride Carbon Dioxide Anion Gap BUN Creatinine Est GFR ( Amer) Glucose Calcium Magnesium Triglycerides Cholesterol LDL Cholesterol Direct VLDL Cholesterol HDL Cholesterol TSH 0.94 Free T3 pg/mL 3.11 Urine Color Urine Appearance Urine pH Ur Specific [place] Urine Protein Urine Glucose (UA) Urine Ketones Urine Blood Urine Nitrite Ur Leukocyte Esterase Urine WBC (Auto) Urine RBC (Auto) 10/30/19 10/30/19 10/31/19 14:05 14:05 04:14 Creatine Kinase 1065 H 1240 H CK-MB (CK-2) 10.20 H Troponin I 0.028 Impressions: Chest X-Ray 10/30/19 16:09 IMPRESSION: 1. As on the prior examination dated 05/31/2017, left upper lobe pulmonary nodule. 2. No acute pulmonary findings. Head CT 10/30/19 16:09 IMPRESSION: MILD CHRONIC CHANGES OF ATROPHY AND MICROVASCULAR ISCHEMIA. NO ACUTE PROCESS. EVIDENCE OF ACUTE STROKE: NO. Assessment and Plan - Diagnosis (1) Rhabdomyolysis Qualifiers: Rhabdomyolysis type: traumatic Encounter type: initial encounter Qualified Code(s): T79.6XXA - Traumatic ischemia of muscle, initial encounter Is this a current diagnosis for this admission?: Yes (2) Abrasion of left elbow Qualifiers: Encounter type: initial encounter Qualified Code(s): S50.312A - Abrasion of left elbow, initial encounter Is this a current diagnosis for this admission?: Yes (3) Abrasion of right elbow Qualifiers: Encounter type: initial encounter Qualified Code(s): S50.311A - Abrasion of right elbow, initial encounter Is this a current diagnosis for this admission?: Yes (4) Fall at home Qualifiers: Encounter type: initial encounter Qualified Code(s): W19.XXXA - Unspecified fall, initial encounter; Y92.009 - Unspecified place in unspecified non- institutional (private) residence as the place of occurrence of the external cause Is this a current diagnosis for this admission?: Yes (5) Generalized weakness Is this a current diagnosis for this admission?: Yes (6) Sacral decubitus ulcer, stage II Is this a current diagnosis for this admission?: Yes - Plan Summary Summary: Patient will be admitted medical floor where she will receive routine supportive and symptomatic cares. A PT consultation and a case management consultation will be obtained. Every 4 hours neuro checks will be obtained. Patient will be treated with IV fluids utilizing D5LR at 167 mL/h. Serial CPKs and metabolic profiles will be obtained. She will use morphine sulfate 2 to 4 mg IV every 2 hours as needed for pain. She will use Ativan 1 mg IV every 4 hours as needed for anxiety or restlessness. She will be continued on her usual home medications, as appropriate, when her medication list can be verified and reconciled. She will be placed on a cardiac diet. CBCs, metabolic profiles and additional laboratory and/or radiographic evaluations will be obtained as needed. 10/31/2019 Patient started on IV fluids. Will change to normal saline. Eating and drinking trend ck PT/OT RAFAELA consulted - Time Time Spent with patient: Less than 15 minutes Anticipated Discharge Disposition: Home, Self Care Anticipated Discharge Timeframe: within 48 hours
[2019-10-31] MEDS: CEFTRIAXONE 1 GM/D5W RTU 1 GM/50 ML RTUPB IV SCH (20:33)
[2019-10-31] MEDS: NORMAL SALINE 1000 ML 1,000 ML IV PRN (20:34)
[2019-10-31] MEDS: TEMAZEPAM 15 MG CAPSULE PO SCH (21:46)
[2019-10-31] MEDS: BENZTROPINE MESYLATE 1 MG TABLET PO SCH (21:46)
[2019-10-31] MEDS: FLUTICASONE NASAL SPRAY 50 MCG/SPRY 120 SPRAY/16 GM NASL SCH (21:47)
[2019-11-01 05:00] LABS: ANION GAP 7 (5-19); BLOOD UREA NITROGEN 8 mg/dL (7-20); CALCIUM 8.5 mg/dL (8.4-10.2); CARBON DIOXIDE 27 mmol/L (22-30); CHLORIDE 103 mmol/L (98-107); CREATINE KINASE 1347 U/L (30-135); GLUCOSE 96 mg/dL (75-110)
[2019-11-01] MEDS: HEPARIN SOD (PORCINE) 5,000 UNIT/ML 1 ML VIAL SUBCUT SCH ×3 (05:41→21:52)
[2019-11-01] MEDS: LEVOTHYROXINE SODIUM 0.05 MG TABLET PO SCH (05:41)
[2019-11-01] MEDS: NORMAL SALINE 1000 ML 1,000 ML IV PRN (05:41)
[2019-11-01] MEDS: BUDESONIDE NEB 0.5 MG/2 ML AMPUL NEB SCH ×2 (07:57→19:56)
[2019-11-01] MEDS: LEVALBUTEROL HCL NEB 1.25 MG/3 ML AMPUL NEB SCH ×2 (07:57→16:23)
[2019-11-01] MEDS: IPRATROPIUM BROMIDE 0.02% NEB 0.5 MG/2.5 ML AMPUL NEB SCH ×2 (07:57→16:23)
[2019-11-01] MEDS: POTASSI CL 20 MEQ/50 ML RIDER 20 MEQ/50 ML RTUPB IV SCH ×2 (09:25→11:01)
[2019-11-01] MEDS: ASPIRIN 81 MG TABLET, ENT COATED PO SCH (09:28)
[2019-11-01] MEDS: POTASSIUM CHLORIDE 10 MEQ TABLET.ER PO SCH (09:28)
[2019-11-01] MEDS: BUSPIRONE HCL 10 MG TABLET PO SCH ×3 (09:28→17:49)
[2019-11-01] MEDS: FAMOTIDINE 20 MG TABLET PO SCH ×2 (09:28→21:51)
[2019-11-01] MEDS: BENZTROPINE MESYLATE 1 MG TABLET PO SCH ×2 (09:29→21:51)
[2019-11-01] MEDS: DOCUSATE SODIUM 100 MG CAPSULE PO SCH ×2 (09:29→17:49)
[2019-11-01] MEDS: FLUTICASONE NASAL SPRAY 50 MCG/SPRY 120 SPRAY/16 GM NASL SCH ×2 (09:29→21:52)
[2019-11-01] MEDS: NYSTATIN TOPICAL POWDER 15 GM TP SCH ×2 (09:30→17:50)
[2019-11-01] MEDS: CEFTRIAXONE 1 GM/D5W RTU 1 GM/50 ML RTUPB IV SCH (17:50)
[2019-11-01] MEDS ORDERED: MONTELUKAST SODIUM 10 MG TABLET PO SCH (18:00)
[2019-11-01] MEDS ORDERED: NORMAL SALINE 1000 ML 1,000 ML IV ONE (18:49)
[2019-11-01] MEDS ORDERED: NORMAL SALINE 1000 ML 1,000 ML IV PRN (18:49)
[2019-11-01] MEDS ORDERED: RINGERS SOLUTION,LACTATED 1,000 ML IV PRN (18:51)
--- NOTE | 2019-11-01 19:00 | PDOC PROGRESS REPORT ---
Subjective Progress Note for:: 11/01/19 Subjective:: Continues to feel better and better. Walked well with physical therapy yesterday. She did admits to some fevers and some vomiting yesterday. States that she has been told her potassium was low in the past from blood pressure medication she was taking. Denies diarrhea. Discussed case extensively with patient and patient's son Tobi at bedside. Reason For Visit: FALL AT HOME,RHABDOMYOLYSIS,UNABLE TO AMBULATE Physical Exam Vital Signs: Temp Pulse Resp BP Pulse Ox 98.2 F 81 16 109/58 L 96 11/01/19 15:04 11/01/19 16:23 11/01/19 16:23 11/01/19 15:04 11/01/19 16:23 Intake & Output 10/31/19 11/01/19 11/02/19 06:59 06:59 06:59 Intake Total 1150 2450 3281 Output Total 450 Balance 1150 2000 3281 Weight 88.6 kg 91.4 kg General appearance: PRESENT: no acute distress, cooperative Neck exam: ABSENT: JVD Respiratory exam: PRESENT: clear to auscultation zac, unlabored. ABSENT: tachypnea, wheezes Cardiovascular exam: PRESENT: RRR, +S1, +S2. ABSENT: tachycardia GI/Abdominal exam: PRESENT: soft. ABSENT: rebound, rigid, tenderness Neurological exam: PRESENT: alert, awake, oriented to person, oriented to place, oriented to time Psychiatric exam: ABSENT: agitated, anxious Results Laboratory Results: 10/31/19 04:14 11/01/19 04:14 11/01/19 04:14 Sodium 136.7 L Potassium 3.0 L* Chloride 103 Carbon Dioxide 27 Anion Gap 7 BUN 8 Creatinine 0.54 Est GFR ( Amer) > 60 Glucose 96 Calcium 8.5 10/30/19 19:11 Catheterized Urine Urine Culture - Final Escherichia Coli 10/30/19 10/30/19 10/31/19 14:05 14:05 04:14 Creatine Kinase 1065 H 1240 H CK-MB (CK-2) 10.20 H Troponin I 0.028 11/01/19 04:14 Creatine Kinase 1347 H CK-MB (CK-2) Troponin I Impressions: Chest X-Ray 10/30/19 16:09 IMPRESSION: 1. As on the prior examination dated 05/31/2017, left upper lobe pulmonary nodule. 2. No acute pulmonary findings. Head CT 10/30/19 16:09 IMPRESSION: MILD CHRONIC CHANGES OF ATROPHY AND MICROVASCULAR ISCHEMIA. NO ACUTE PROCESS. EVIDENCE OF ACUTE STROKE: NO. Assessment and Plan - Diagnosis (1) Rhabdomyolysis Qualifiers: Rhabdomyolysis type: traumatic Encounter type: initial encounter Qualified Code(s): T79.6XXA - Traumatic ischemia of muscle, initial encounter Is this a current diagnosis for this admission?: Yes (2) Abrasion of left elbow Qualifiers: Encounter type: initial encounter Qualified Code(s): S50.312A - Abrasion of left elbow, initial encounter Is this a current diagnosis for this admission?: Yes (3) Abrasion of right elbow Qualifiers: Encounter type: initial encounter Qualified Code(s): S50.311A - Abrasion of right elbow, initial encounter Is this a current diagnosis for this admission?: Yes (4) Fall at home Qualifiers: Encounter type: initial encounter Qualified Code(s): W19.XXXA - Unspecified fall, initial encounter; Y92.009 - Unspecified place in unspecified non- institutional (private) residence as the place of occurrence of the external cause Is this a current diagnosis for this admission?: Yes (5) Generalized weakness Is this a current diagnosis for this admission?: Yes (6) Sacral decubitus ulcer, stage II Is this a current diagnosis for this admission?: Yes (7) E. coli UTI Is this a current diagnosis for this admission?: Yes (8) Hypokalemia Is this a current diagnosis for this admission?: Yes - Plan Summary Summary: Patient will be admitted medical floor where she will receive routine supportive and symptomatic cares. A PT consultation and a case management consultation will be obtained. Every 4 hours neuro checks will be obtained. Patient will be treated with IV fluids utilizing D5LR at 167 mL/h. Serial CPKs and metabolic profiles will be obtained. She will use morphine sulfate 2 to 4 mg IV every 2 hours as needed for pain. She will use Ativan 1 mg IV every 4 hours as needed for anxiety or restlessness. She will be continued on her usual home medications, as appropriate, when her medication list can be verified and reconciled. She will be placed on a cardiac diet. CBCs, metabolic profiles and additional laboratory and/or radiographic evaluations will be obtained as needed. 10/31/2019 Patient started on IV fluids. Will change to normal saline. Eating and drinking trend ck PT/OT SW consulted 11/01/2019 CK has not shown much improvement. We will give a bolus of IV fluids and continue lactated Ringer's. Hypokalemic at 3.0 today on metabolic panel. Will give IV repletion as well as oral repletion and check BMP in the morning. E. coli UTI-susceptibilities show pansensitivity-change from ceftriaxone to cefazolin. Did well with physical therapy. We will plan towards home health Check CK in the morning Hold statin - Time Time Spent with patient: 15-24 minutes Anticipated Discharge Disposition: Home with Home Health Anticipated Discharge Timeframe: within 24 hours
[2019-11-01] MEDS: TEMAZEPAM 15 MG CAPSULE PO SCH (21:51)
[2019-11-02] MEDS ORDERED: CEFAZOLIN 2 GM/D5W RTU 2 GM/50 ML RTUPB IV SCH
[2019-11-02] MEDS: LEVALBUTEROL HCL NEB 1.25 MG/3 ML AMPUL NEB SCH ×2 (00:24→07:47)
[2019-11-02] MEDS: IPRATROPIUM BROMIDE 0.02% NEB 0.5 MG/2.5 ML AMPUL NEB SCH ×2 (00:24→07:48)
[2019-11-02] MEDS: CEFAZOLIN SODIUM 2 GM in DEXTROSE 5%-WATER 100 ML IV SCH ×3 (00:31→11:34)
[2019-11-02 05:20] LABS: ANION GAP 9 (5-19); BLOOD UREA NITROGEN 4 mg/dL (7-20); CALCIUM 8.7 mg/dL (8.4-10.2); CARBON DIOXIDE 25 mmol/L (22-30); CHLORIDE 104 mmol/L (98-107); CREATINE KINASE 926 U/L (30-135); GLUCOSE 94 mg/dL (75-110); POTASSIUM 3.5 mmol/L (3.6-5.0)
[2019-11-02] MEDS: HEPARIN SOD (PORCINE) 5,000 UNIT/ML 1 ML VIAL SUBCUT SCH (05:56)
[2019-11-02] MEDS: LEVOTHYROXINE SODIUM 0.05 MG TABLET PO SCH (05:57)
[2019-11-02] MEDS: BUDESONIDE NEB 0.5 MG/2 ML AMPUL NEB SCH (07:47)
[2019-11-02 08:41] LABS: HEMOGLOBIN 13.6 g/dL (12.0-15.5); MEAN CORPUSCULAR HEMOGLOBIN 29.1 pg (27.0-33.4); MEAN CORPUSCULAR HGB CONC 33.3 g/dL (32.0-36.0); MEAN CORPUSCULAR VOLUME 88 fl (80-97); PLATELET COUNT 257 10^3/uL (150-450); RED BLOOD COUNT 4.67 10^6/uL (3.72-5.28); RED CELL DISTRIBUTION WIDTH 14.2 % (11.5-14.0); WHITE BLOOD COUNT 9.8 10^3/uL (4.0-10.5)
[2019-11-02] MEDS: BENZTROPINE MESYLATE 1 MG TABLET PO SCH (09:28)
[2019-11-02] MEDS: FAMOTIDINE 20 MG TABLET PO SCH (09:28)
[2019-11-02] MEDS: BUSPIRONE HCL 10 MG TABLET PO SCH (09:28)
[2019-11-02] MEDS: ASPIRIN 81 MG TABLET, ENT COATED PO SCH (09:28)
[2019-11-02] MEDS: POTASSIUM CHLORIDE 10 MEQ TABLET.ER PO SCH (09:28)
[2019-11-02] MEDS: DOCUSATE SODIUM 100 MG CAPSULE PO SCH (09:28)
[2019-11-02] MEDS: FLUTICASONE NASAL SPRAY 50 MCG/SPRY 120 SPRAY/16 GM NASL SCH (09:29)
[2019-11-02] MEDS: NYSTATIN TOPICAL POWDER 15 GM TP SCH (09:33)
[2019-11-02] MEDS ORDERED: ONDANSETRON HCL INJ/PF 4 MG/2 ML SDV IV PRN (11:30)
[2019-11-02 12:29] VITALS: BP 154/67
--- NOTE | 2019-11-02 12:43 | PDOC DISCHARGE SUMMARY ---
Impression - Admit/DC Date/PCP Admission Date/Primary Care Provider: 10/30/19 21:24 ARMEN DOWNEY MD Discharge Date: 11/02/19 - Discharge Diagnosis (1) Rhabdomyolysis Is this a current diagnosis for this admission?: Yes (2) Abrasion of left elbow Is this a current diagnosis for this admission?: Yes (3) Abrasion of right elbow Is this a current diagnosis for this admission?: Yes (4) Fall at home Is this a current diagnosis for this admission?: Yes (5) Generalized weakness Is this a current diagnosis for this admission?: Yes (6) Sacral decubitus ulcer, stage II Is this a current diagnosis for this admission?: Yes (7) E. coli UTI Is this a current diagnosis for this admission?: Yes (8) Hypokalemia Is this a current diagnosis for this admission?: Yes - Assessment Summary: Patient will be admitted medical floor where she will receive routine supportive and symptomatic cares. A PT consultation and a case management consultation will be obtained. Every 4 hours neuro checks will be obtained. Patient will be treated with IV fluids utilizing D5LR at 167 mL/h. Serial CPKs and metabolic profiles will be obtained. She will use morphine sulfate 2 to 4 mg IV every 2 hours as needed for pain. She will use Ativan 1 mg IV every 4 hours as needed for anxiety or restlessness. She will be continued on her usual home medications, as appropriate, when her medication list can be verified and reconciled. She will be placed on a cardiac diet. CBCs, metabolic profiles and additional laboratory and/or radiographic evaluations will be obtained as needed. 10/31/2019 Patient started on IV fluids. Will change to normal saline. Eating and drinking trend ck PT/OT SW consulted 11/01/2019 CK has not shown much improvement. We will give a bolus of IV fluids and continue lactated Ringer's. Hypokalemic at 3.0 today on metabolic panel. Will give IV repletion as well as oral repletion and check BMP in the morning. E. coli UTI-susceptibilities show pansensitivity-change from ceftriaxone to cefazolin. Did well with physical therapy. We will plan towards home health Check CK in the morning Hold statin - Additional Information Resuscitation Status: Full Code Discharge Diet: Cardiac Discharge Activity: Activity As Tolerated Referrals: ARMEN DOWNEY MD [Primary Care Provider] - 11/07/19 2:15 pm Prescriptions: Cephalexin Monohydrate [Keflex 500 mg Capsule] 500 mg PO TID 3 Days #9 capsule Potassium Chloride 40 meq PO DAILY #20 tablet.er Telmisartan 40 mg PO DAILY #30 tablet Home Medications: Amlodipine Besylate 5 mg PO QAM 07/31/15 Aspirin [Aspirin EC] 81 mg PO QAM 07/31/15 Clonazepam [Klonopin 0.5 mg Tablet Rapid Dissolve] 0.5 mg PO BIDP PRN 07/31/15 Fluticasone Propionate [Flonase Nasal [place] 50 Mcg/[place] 16 gm] 2 sprays NASL Q12 07/31/15 Levothyroxine Sodium 50 mcg PO Q6AM 07/31/15 Montelukast Sodium [Singulair] 10 mg PO QPM 07/31/15 Temazepam [Restoril] 30 mg PO QHS 07/31/15 Benztropine Mesylate [Cogentin 1 mg Tablet] 1 mg PO Q12 10/31/19 Buspirone HCl 30 mg PO Q8 10/31/19 Fluticasone/Salmeterol [Advair 500-50 Diskus 14 Dose/Diskus] 1 inh IH Q12 10/31/19 Hydrocodone/Acetaminophen [[place] 5-325 mg Tablet] 1 tab PO BIDP PRN 10/31/19 Promethazine HCl [Phenergan 25 mg Tablet] 25 mg PO DAILYP PRN 10/31/19 Sumatriptan Succinate [Imitrex 100 mg Tablet] 100 mg PO ASDIR PRN 10/31/19 Valbenazine Tosylate [Ingrezza] 80 mg PO DAILY 10/31/19 Cephalexin Monohydrate [Keflex 500 mg Capsule] 500 mg PO TID 3 Days #9 capsule 11/02/19 Potassium Chloride 40 meq PO DAILY #20 tablet.er 11/02/19 Telmisartan 40 mg PO DAILY #30 tablet 11/02/19 History of Present Illiness History of Present Illness: According admitting provider: NABEEL BENAVIDES is a 74 year old female who presented to the emergency room with a 2-day history of generalized weakness. She admits waking up, sitting on the side of the bed, trying to stand to go to the bathroom and being so weak that she just slid to the floor beside the bed at home on the evening of 10/28/2019. She continued to experience severe generalized weakness, being unable to get up from the floor and she was also unable to crawl sufficiently far to get to a phone, bathroom or food and water. She admits accompanying pain in her lower back. She admits associated abrasions of her bilateral elbows from crawling on the floor. She denies other associated or accompanying signs and symptoms. She admits a prior similar episode in September resulting in a fracture of her left wrist. She has not identified any aggravating or ameliorating factors for her generalized weakness. Her family was unable to contact her and called local law enforcement to do a wellness check leading to her discovery today. She denies any loss of consciousness or other injuries in her fall. In the emergency room she was found to have a CPK of 1065 and myoglobin present in the urine. She was subsequently admitted to the hospital for further evaluation and treatment. Hospital Course Hospital Course: 10/30/2019 Patient will be admitted medical floor where she will receive routine supportive and symptomatic cares. A PT consultation and a case management consultation will be obtained. Every 4 hours neuro checks will be obtained. Patient will be treated with IV fluids utilizing D5LR at 167 mL/h. Serial CPKs and metabolic profiles will be obtained. She will use morphine sulfate 2 to 4 mg IV every 2 hours as needed for pain. She will use Ativan 1 mg IV every 4 hours as needed for anxiety or restlessness. She will be continued on her usual home medications, as appropriate, when her medication list can be verified and reconciled. She will be placed on a cardiac diet. CBCs, metabolic profiles and additional laboratory and/or radiographic evaluations will be obtained as needed. 10/31/2019 Patient started on IV fluids. Will change to normal saline. Eating and drinking trend ck PT/OT SW consulted 11/01/2019 CK has not shown much improvement. We will give a bolus of IV fluids and continue lactated Ringer's. Hypokalemic at 3.0 today on metabolic panel. Will give IV repletion as well as oral repletion and check BMP in the morning. E. coli UTI-susceptibilities show pansensitivity-change from ceftriaxone to cefazolin. Did well with physical therapy. We will plan towards home health Check CK in the morning Hold statin 11/02/2019 CK improved today. Etiology is being down for prolonged time period combined with atorvastatin and hypokalemia. Lipid panel is normal so I will discontinue atorvastatin especially given patient's age. D/c with Keflex for tx of E coli UTI. Set up for Home health with pt/ot. Patient will be living with her son in [facility] upon discharge. Potassium supplements. HCTZ discontinued. Continue telmisartan and amlodipine. Physical Exam Vital Signs: Temp Pulse Resp BP Pulse Ox 98.9 F 92 19 112/60 93 11/02/19 12:03 11/02/19 12:03 11/02/19 12:03 11/02/19 12:03 11/02/19 12:03 Intake & Output 11/01/19 11/02/19 11/03/19 06:59 06:59 06:59 Intake Total 2450 4831 1240 Output Total 450 Balance 1999 4831 1240 Weight 91.4 kg 92.2 kg General appearance: PRESENT: no acute distress, cooperative Neck exam: ABSENT: JVD Respiratory exam: PRESENT: clear to auscultation zac, unlabored Cardiovascular exam: ABSENT: tachycardia Neurological exam: PRESENT: alert, awake, oriented to person, oriented to place, oriented to time, oriented to situation Results Laboratory Results: WBC 9.8 10^3/uL (4.0-10.5) 11/02/19 04:30 RBC 4.67 10^6/uL (3.72-5.28) 11/02/19 04:30 Hgb 13.6 g/dL (12.0-15.5) 11/02/19 04:30 Hct 41.0 % (36.0-47.0) 11/02/19 04:30 MCV 88 fl (80-97) 11/02/19 04:30 MCH 29.1 pg (27.0-33.4) 11/02/19 04:30 MCHC 33.3 g/dL (32.0-36.0) 11/02/19 04:30 RDW 14.2 % (11.5-14.0) H 11/02/19 04:30 Plt Count 257 10^3/uL (150-450) 11/02/19 04:30 Lymph % (Auto) 6.2 % (13-45) L 10/30/19 14:05 [place] % (Auto) 4.7 % (3-13) 10/30/19 14:05 Eos % (Auto) 0.0 % (0-6) 10/30/19 14:05 Baso % (Auto) 0.4 % (0-2) 10/30/19 14:05 Absolute Neuts (auto) 15.4 10^3/uL (1.7-8.2) H 10/30/19 14:05 Absolute Lymphs (auto) 1.1 10^3/uL (0.5-4.7) 10/30/19 14:05 Absolute Monos (auto) 0.8 10^3/uL (0.1-1.4) 10/30/19 14:05 Absolute Eos (auto) 0.0 10^3/uL (0.0-0.6) 10/30/19 14:05 Absolute Basos (auto) 0.1 10^3/uL (0.0-0.2) 10/30/19 14:05 Seg Neutrophils % 88.7 % (42-78) H 10/30/19 14:05 Sodium 138.3 mmol/L (137-145) 11/02/19 04:30 Potassium 3.5 mmol/L (3.6-5.0) L 11/02/19 04:30 Chloride 104 mmol/L (98-107) 11/02/19 04:30 Carbon Dioxide 25 mmol/L (22-30) 11/02/19 04:30 Anion Gap 9 (5-19) 11/02/19 04:30 BUN 4 mg/dL (7-20) L 11/02/19 04:30 Creatinine 0.55 mg/dL (0.52-1.25) 11/02/19 04:30 Est GFR ( Amer) > 60 (>60) 11/02/19 04:30 Est GFR (MDRD) Non-Af > 60 (>60) 11/02/19 04:30 Glucose 94 mg/dL (75-110) 11/02/19 04:30 POC Glucose 123 mg/dL (70-110) H 10/30/19 15:30 Calcium 8.7 mg/dL (8.4-10.2) 11/02/19 04:30 Magnesium 1.8 mg/dL (1.6-2.3) 10/31/19 04:14 Total Bilirubin 1.0 mg/dL (0.2-1.3) 10/30/19 14:05 Direct Bilirubin 0.2 mg/dL (0.0-0.4) 10/30/19 14:05 Neonat Total Bilirubin Not Reportable 10/30/19 14:05 Neonat Direct Bilirubin Not Reportable 10/30/19 14:05 Neonat Indirect Bili Not Reportable 10/30/19 14:05 AST 65 U/L (14-36) H 10/30/19 14:05 ALT 35 U/L (<35) 10/30/19 14:05 Alkaline Phosphatase 110 U/L (38-126) 10/30/19 14:05 Creatine Kinase 926 U/L (30-135) H 11/02/19 04:30 CK-MB (CK-2) 10.20 ng/mL (<4.55) H 10/30/19 14:05 Troponin I 0.028 ng/mL 10/30/19 14:05 Total Protein 8.2 g/dL (6.3-8.2) 10/30/19 14:05 Albumin 4.6 g/dL (3.5-5.0) 10/30/19 14:05 Triglycerides 73 mg/dL (<150) 10/31/19 04:14 Cholesterol 121.98 mg/dL (0-200) 10/31/19 04:14 LDL Cholesterol Direct 58 mg/dL (<100) 10/31/19 04:14 VLDL Cholesterol 15.0 mg/dL (10-31) 10/31/19 04:14 HDL Cholesterol 49 mg/dL (>40) 10/31/19 04:14 TSH 0.94 uIU/mL (0.47-4.68) 10/31/19 04:14 Free T3 pg/mL 3.11 pg/mL (2.77-5.27) 10/31/19 04:14 Urine Color DARK YELLOW 10/30/19 19:11 Urine Appearance CLEAR 10/30/19 19:11 Urine pH 5.0 (5.0-9.0) 10/30/19 19:11 Ur Specific [place] 1.018 10/30/19 19:11 Urine Protein 30 mg/dL (NEGATIVE) H 10/30/19 19:11 Urine Glucose (UA) NEGATIVE mg/dL (NEGATIVE) 10/30/19 19:11 Urine Ketones TRACE mg/dL (NEGATIVE) H 10/30/19 19:11 Urine Blood SMALL (NEGATIVE) H 10/30/19 19:11 Urine Nitrite POSITIVE (NEGATIVE) H 10/30/19 19:11 Urine Bilirubin NEGATIVE (NEGATIVE) 10/30/19 19:11 Urine Urobilinogen 2.0 mg/dL (<2.0) H 10/30/19 19:11 Ur Leukocyte Esterase TRACE (NEGATIVE) H 10/30/19 19:11 Urine WBC (Auto) 13 /HPF 10/30/19 19:11 Urine RBC (Auto) 0 /HPF 10/30/19 19:11 U Hyaline Cast (Auto) 3 /LPF 10/30/19 19:11 Urine Bacteria (Auto) 3+ /HPF 10/30/19 19:11 Squamous Epi Cells Auto 2 /HPF 10/30/19 19:11 Urine Mucus (Auto) MANY /LPF 10/30/19 19:11 Urine Ascorbic Acid NEGATIVE (NEGATIVE) 10/30/19 19:11 Urine Opiates Screen NEGATIVE 10/30/19 19:11 Urine Methadone Screen NEGATIVE 10/30/19 19:11 Ur Barbiturates Screen NEGATIVE 10/30/19 19:11 Ur Phencyclidine Scrn NEGATIVE 10/30/19 19:11 Ur Amphetamines Screen NEGATIVE 10/30/19 19:11 U Benzodiazepines Scrn UNCONFIRMED POSITIVE 10/30/19 19:11 Urine Cocaine Screen NEGATIVE 10/30/19 19:11 U Marijuana (THC) Screen NEGATIVE 10/30/19 19:11 Serum Alcohol < 10 mg/dL (NONE DETECTED) 10/30/19 14:05 10/30/19 14:05 CK-MB (CK-2) 10.20 H Troponin I 0.028 Impressions: Chest X-Ray 10/30/19 16:09 IMPRESSION: 1. As on the prior examination dated 05/31/2017, left upper lobe pulmonary nodule. 2. No acute pulmonary findings. Head CT 10/30/19 16:09 IMPRESSION: MILD CHRONIC CHANGES OF ATROPHY AND MICROVASCULAR ISCHEMIA. NO ACUTE PROCESS. EVIDENCE OF ACUTE STROKE: NO. Plan Time Spent: Less than 30 Minutes Stroke Is this a Stroke Patient?: No Acute Heart Failure - Is this a Heart Failure Patient?: No
== END 2019-11-02 13:53 | disposition home health service (06) | DRG 565 ==
LOC: ER 14:26 → EH 21:24 → 5 10-31 00:15
PROVIDERS: ADMIT Emergency Medicine; ATTEND Internal Medicine
DX: T79.6XXA Traumatic ischemia of muscle, initial encounter (principal); N39.0 Urinary tract infection, site not specified; M62.82 Rhabdomyolysis; W18.30XA Fall on same level, unspecified, initial encounter; Y92.003 Bedroom of unspecified non-institutional (private) residence as the place of occurrence of the external cause; E86.0 Dehydration; E78.5 Hyperlipidemia, unspecified; I10 Essential (primary) hypertension; J45.909 Unspecified asthma, uncomplicated; F41.1 Generalized anxiety disorder; E87.6 Hypokalemia; L89.152 Pressure ulcer of sacral region, stage 2; F32.9 Major depressive disorder, single episode, unspecified; B96.20 Unspecified Escherichia coli [E. coli] as the cause of diseases classified elsewhere; H26.9 Unspecified cataract; S50.312A Abrasion of left elbow, initial encounter; B37.2 Candidiasis of skin and nail; Z85.42 Personal history of malignant neoplasm of other parts of uterus; Z90.49 Acquired absence of other specified parts of digestive tract; Z96.653 Presence of artificial knee joint, bilateral; Z96.611 Presence of right artificial shoulder joint; Z82.49 Family history of ischemic heart disease and other diseases of the circulatory system; Z88.1 Allergy status to other antibiotic agents
CPT/HCPCS: 36415; 70450; 71046; 80048; 80053; 80061; 80307; 81001; 82550; 82553; 82962; 83735; 84443; 84481; 84484; 85025; 85027; 87040; 87086; 87088; 87186; 93005; 93010; 94640; 96361; 96374; 99285; J0690; J0696; J1644; J2405; J3480; J3490; J7030; J7060; J7120; J7121; J7614; J7644